=== PATIENT | male | born 1940 | race Caucasian/White ===

== ENCOUNTER → 2016-07-17 | Outpatient (CLI) | payer BC ==
[~2016-07-17] MED LIST: ASPEC81 PO; ATOR-26 PO; FLUT0.15; HYDR1AER23 PR; LEVO88TA3 PO; LISI-461 PO; METO50TA7 PO; MULT-506 PO; SITA50TA5 PO
[2016-07-17 12:45] LABS: ESTIMATED AVERAGE GLUCOSE 143 mg/dl; HA1C FLAG Normal (Normal)
[2016-07-17 12:55] LABS: ALT/SGPT 28 U/L (12-78); BLOOD UREA NITROGEN 16 mg/dl (7-18); BUN/CREATININE RATIO 14.3 (10-20); CARBON DIOXIDE 26 mmol/L (21-32); CHLORIDE 105 mmol/L (98-107); CHOLESTEROL 142 mg/dl (0-200); GLUCOSE 114 mg/dl (70-99); POTASSIUM 4.5 mmol/L (3.5-5.1); SODIUM 138 mmol/L (136-145); TRIGLYCERIDES 152 mg/dl (0-150); VERY LOW DENSITY LIPOPROT CALC 30 mg/dl
[2016-07-17 12:59] LABS: CALCIUM 9.2 mg/dl (8.5-10.1)
[2016-07-17 13:07] LABS: ALB/GLOB RATIO 0.9 (0.9-2); ALKALINE PHOSPHATASE 82 U/L (45-117); AST/SGOT 18 U/L (15-37); CHOLESTEROL/HDL RATIO 4.4; HDL CHOLESTEROL 32 mg/dl; LDL CHOLESTEROL CALCULATED 80 mg/dl
== END | disposition home or self-care (01) ==
LOC: C.LABPBG 10:53
PROVIDERS: ATTEND Internal Medicine Geriatric Medicine
DX: I25.10 Atherosclerotic heart disease of native coronary artery without angina pectoris (principal); E11.9 Type 2 diabetes mellitus without complications; E78.5 Hyperlipidemia, unspecified; E03.9 Hypothyroidism, unspecified; I10 Essential (primary) hypertension

== ENCOUNTER → 2017-01-08 | Outpatient (CLI) | payer BC ==
[2017-01-08 13:09] LABS: ALT/SGPT 29 U/L (12-78); AST/SGOT 20 U/L (15-37); BLOOD UREA NITROGEN 20 mg/dl (7-18); BUN/CREATININE RATIO 18.4 (10-20); CALCIUM 9.1 mg/dl (8.5-10.1); CARBON DIOXIDE 24 mmol/L (21-32); CHLORIDE 102 mmol/L (98-107); CREATININE 1.11 mg/dl (0.60-1.40); GLUCOSE 161 mg/dl (70-99); POTASSIUM 4.4 mmol/L (3.5-5.1); SODIUM 135 mmol/L (136-145)
[2017-01-08 13:20] LABS: ALB/GLOB RATIO 0.9 (0.9-2); ALKALINE PHOSPHATASE 110 U/L (45-117)
[2017-01-08 13:21] LABS: ESTIMATED AVERAGE GLUCOSE 154 mg/dl; HA1C FLAG Normal (Normal)
== END | disposition home or self-care (01) ==
LOC: C.LABPBG 08:11
PROVIDERS: ATTEND Internal Medicine Geriatric Medicine
DX: E11.9 Type 2 diabetes mellitus without complications (principal); E03.9 Hypothyroidism, unspecified; I10 Essential (primary) hypertension

== ENCOUNTER → 2017-02-09 | Outpatient (CLI) | payer BC | END | disposition home or self-care (01) | LOC: C.LABPBG 10:36 | PROVIDERS: ATTEND Internal Medicine Geriatric Medicine | DX: Z00.00 Encounter for general adult medical examination without abnormal findings (principal); E03.9 Hypothyroidism, unspecified ==

== ENCOUNTER 2019-03-01 16:06 | Inpatient (IN) ==
[2019-03-01] MEDS ORDERED: SODIUM CHLORIDE 0.9% 1000ML 1,000 ML IV ONE (17:44)
[2019-03-01 18:33] LABS: Basophils # (auto) 0.02 K/uL (0-0.2); Basophils % (auto) 0.2 %; Eosinophils # (auto) 0.33 K/uL (0-0.5); Eosinophils % (auto) 3.5 %; Hemoglobin 11.5 g/dL (14.0-18.0); Immature Granulocytes # (auto) 0.04 K/uL (0.00-0.02); Immature Granulocytes % (auto) 0.4 %; Lymphocytes # (auto) 1.13 K/uL (1.2-3.4); Mean Corpuscular Hgb Conc 32.9 g/dL (32-36); Mean Corpuscular Volume 88.2 fL (80-100); Mean Platelet Volume 9.3 fL (7.4-10.4); Monocytes # (auto) 0.86 K/uL (0.11-0.59); Monocytes % (auto) 9.1 %; Neutrophils # (auto) 7.02 K/uL (1.4-6.5); Neutrophils % (auto) 74.8 %; Platelet Count 273 K/uL (130-400); RDW Coefficient of Variation 14.1 % (11.5-14.5); RDW Standard Deviation 46.1 fL (36.4-46.3); Red Blood Count 3.97 M/uL (4.7-6.1)
[2019-03-01 18:40] LABS: Appearance Urine Clear (Clear); Bacteria Urine Automated Negative (Negative); Bilirubin Urine Negative (Negative); Blood Urine Negative (Negative); Color Urine Yellow; Glucose Urine UA Negative (Negative); Ketones Urine Negative (Negative); Leukocyte Esterase Urine Negative (Negative); Nitrite Urine Negative (Negative); Protein Urine Trace (Negative); RBC Urine Automated 0-4 /hpf (0-4); Specific Gravity Urine 1.014 (1.000-1.030); Urobilinogen Urine Negative (Negative); pH Urine 6.5 (4.5-7.5)
[2019-03-01 18:51] LABS: Albumin Level 2.9 gm/dl (3.4-5.0); BUN Creatinine Ratio 12.5 (10-20); Calcium 12.4 mg/dl (8.5-10.1); Creatinine Clr Calc Pharmacy 21.9 ml/min; Est GFR (African American) 20.9; Est GFR (Non-African American) 18.1
[2019-03-01 19:05] LABS: Albumin Globulin Ratio 0.6 (0.9-2); Bilirubin,Total 0.5 mg/dl (0.2-1); Globulin 4.8 gm/dl (2.5-4.0); Total Protein 7.7 gm/dl (6.4-8.2)
--- NOTE | 2019-03-01 20:26 | Emergency Department Note ---
Entered by Akua Murphy acting as a scribe for History of Present Illness General Chief complaint: Abnormal Labs/Diagnostic Testing Stated complaint: RENAL FAILURE Source: patient History of Present Illness Provider complaint: abdonormal labs Onset (ago): month(s) 2 Location: lower extremity and left Pain Consistency: + intermittent Associated symptoms: + loss of appetite and + other (Positive intermittent groin pain; Positive leg swelling; Positive leg erythema; Positive ankle swelling; Negative diarrhea;); no chest pain, no nausea/vomiting and no shortness of breath Treatments prior to arrival: none The patient, who is a 78 year old male with a medical history of hypertension, hypothyroidism, and chronic osteoarthritis, presents to the Emergency Room with complaints of unusual lab readings that were discovered prior to arrival. The patient's informs that the patient's creatinine levels were at 1 in December but it recently elevated to 3. The patient states that yesterday he had an ultrasound done which came back negative for blood clots. The patient's recalls that the patient has been experiencing leg pain and swelling for the past two months. The patient reports that on the patient had pain in his groin and swelling in his ankles. The patient's states that on February 16 the patient had pain is groin for 3 hours however this has resolved. The patient's expresses that the patient has not been eating and drinking at a normal rate. The patient states that he has been eating but lacks an appetite. The patient's informs that six days ago the patient's left foot was red and swollen. The patient denies nausea, vomiting, chest pain, or shortness of breath. The patient denies any other medical problems or the use of Lasix. Home Medications Home Medications Medication Instructions Recorded Confirmed Type atorvastatin 80 mg tablet 80 mg PO HS #90 tab 10/08/18 03/01/19 Rx acetaminophen 500 mg tablet 1,000 mg PO TID PRN #90 tab 11/29/18 03/01/19 History amoxicillin 500 mg capsule See Rx Instructions .ROUTE 11/29/18 03/01/19 History .COMPLEX cap blood sugar diagnostic #10 ea 11/29/18 02/28/19 History fluticasone propionate 50 1 sprays INTRANASAL DAILY PRN #3 gm 11/29/18 03/01/19 History mcg/actuation nasal spray,suspension lancets #50 ea 11/29/18 02/28/19 History metoprolol succinate 50 mg 50 mg PO QAM #90 tab 11/29/18 03/01/19 History tablet,extended release 24 hr sitagliptin 50 mg-metformin 1,000 1 tab PO BID #180 tab 02/04/19 03/01/19 Rx mg tablet aspirin 81 mg PO QPM 03/01/19 03/01/19 History levothyroxine 100 mcg PO QAM 03/01/19 03/01/19 History lisinopril 10 mg PO QPM 03/01/19 03/01/19 History Allergies Allergy/AdvReac Type Severity Reaction Status Date / Time No Known Allergies Allergy Verified 03/01/19 18:21 Past Med/Surg History Medical History Arteriosclerotic coronary artery disease Bleeding external hemorrhoids (Inactive) Chronic osteoarthritis Dyslipidemia Gastroesophageal reflux disease Hypertension Hypothyroidism Severe sleep apnea T2DM (type 2 diabetes mellitus) Surgical History History of total knee arthroplasty R knee. S/P coronary artery stent placement (02/2009) WALKER ti RCA Family History Father , age 70 Stroke Myocardial infarction Coronary heart disease Social History Preferred Language: Slovak Communication Ability: Effective Visual Impairment: No Limitations Hearing Ability: Use of Hearing Aid Oracle Engineer Required: No Beliefs That Will Affect Care: None marital status: Current Living Situation: Spouse current occupational status: retired Feels Safe at Home: Yes Safety Concerns: Feels Safe At This Time Smoking Status: Never smoker Second Hand Exposure: No ; Hx Alcohol Use: No Hx Substance Use: No caffeine: Yes Dental Care, Regularly: Yes Physical Activity Frequency: 3-4 Times per Week Seatbelt Use: always Sunscreen Use: Yes Review of Systems See HPI for pertinent positives & negatives. and A total of 10 systems reviewed and were otherwise negative Physical Exam Vital Signs Vital Signs - 24 hr 03/01/19 16:54 03/01/19 18:23 03/01/19 19:00 Temperature 36.6 C Temperature Source Oral Pulse Rate 88 80 80 Pulse Rate [Apical] 82 Pulse Rate from SpO2 Sensor 80 Pulse Rhythm Regular Pulse Rhythm [Apical] Regular Pulse Strength [Apical] Normal Respiratory Rate 20 20 19 Respiratory Effort / Characteristics Non-Labored Spontaneous Non-Labored Spontaneous Respiratory Depth Normal Normal Respiratory Pattern Regular Regular Blood Pressure 156/70 H Blood Pressure [Right Arm] 142/76 H Blood Pressure Mean 98 Blood Pressure Mean [Right Arm] 98 Blood Pressure Position Sitting Blood Pressure Position [Right Arm] Lying Pulse Oximetry 98 98 97 Oxygen Delivery Method Room Air Room Air Sepsis Recent Fever Within 48 Hours No Sepsis New/Unexplained Change in Mental Status No Sepsis Action Taken by Nursing No Action Required 03/01/19 19:06 03/01/19 19:30 03/01/19 19:44 Temperature Temperature Source Pulse Rate 76 76 Pulse Rate [Apical] 80 Pulse Rate from SpO2 Sensor 76 76 Pulse Rhythm Pulse Rhythm [Apical] Regular Pulse Strength [Apical] Normal Respiratory Rate 20 22 21 Respiratory Effort / Characteristics Non-Labored Spontaneous Respiratory Depth Normal Respiratory Pattern Regular Blood Pressure 150/88 H Blood Pressure [Right Arm] 142/76 H Blood Pressure Mean 123 Blood Pressure Mean [Right Arm] 98 Blood Pressure Position Blood Pressure Position [Right Arm] Lying Pulse Oximetry 98 98 97 Oxygen Delivery Method Room Air Sepsis Recent Fever Within 48 Hours Sepsis New/Unexplained Change in Mental Status Sepsis Action Taken by Nursing 03/01/19 20:01 03/01/19 20:30 Temperature Temperature Source Pulse Rate 77 76 Pulse Rate [Apical] Pulse Rate from SpO2 Sensor 77 76 Pulse Rhythm Pulse Rhythm [Apical] Pulse Strength [Apical] Respiratory Rate 22 24 Respiratory Effort / Characteristics Respiratory Depth Respiratory Pattern Blood Pressure 146/91 H 146/71 H Blood Pressure [Right Arm] Blood Pressure Mean 119 114 Blood Pressure Mean [Right Arm] Blood Pressure Position Blood Pressure Position [Right Arm] Pulse Oximetry 97 99 Oxygen Delivery Method Sepsis Recent Fever Within 48 Hours Sepsis New/Unexplained Change in Mental Status Sepsis Action Taken by Nursing GENERAL: Sitting up in bed, alert, well appearing, well nourished, no distress, non-toxic EYE EXAM: normal conjunctiva. OROPHARYNX: no exudate, no erythema, lips, buccal mucosa, and tongue normal and mucous membranes are moist NECK: supple, no nuchal rigidity, no adenopathy, non-tender LUNGS: Clear to auscultation. Normal chest wall mechanics HEART: no murmurs, S1 normal and S2 normal ABDOMEN: abdomen soft, non-tender, normo-active bowel sounds, no masses, no rebound or guarding. BACK: Back is symmetrical on inspection and there is no deformity, no midline tenderness, no CVA tenderness. SKIN: no rashes and no bruising UPPER EXTREMITIES: upper extremities are grossly normal. LOWER EXTREMITIES: Mild pitting edema bilateral lower extremities NEURO EXAM: Normal sensorium, cranial nerves II-XII grossly intact, normal speech, no gross weakness of arms, no gross weakness of legs. Course Course ED COURSE: Vital signs were reviewed and showed hypertensive. The patients medical record was reviewed The above diagnostic studies were performed and reviewed. ED treatments and interventions as stated above. 1725: The patient was evaluated in room C8. A complete history and physical examination was performed. 1931: I reviewed the patient's case with Dr. Douglas. She will evaluate the patient for further management. 1942: Upon reevaluation, the patient is resting.I discussed my findings with the patient and he understands and agrees with the treatment plan. Based on the patients age, coexisting illnesses, exam and lab findings the decision to treat as an inpatient was made. The patient remained stable while under my care. The patient will be evaluated for further management. Consultations Consultation #1: I reviewed the patient's case with Dr. Douglas. She will evaluate the patient for further management. Time: 19:32 Administered Medications Aspirin (Ecotrin Ectab) 81 mg PO QPM DARYL Stop: 03/31/19 21:43 Last Admin: 03/01/19 22:10 Dose: 81 mg Documented by: [id number] Atorvastatin Calcium (Lipitor) 80 mg PO HS DARYL Stop: 03/31/19 21:43 Last Admin: 03/01/19 22:10 Dose: 80 mg Documented by: [id number] Heparin Sodium (Porcine) (Heparin Sodium (Porcine)) 5,000 units SQ Q12 DARYL Stop: 03/31/19 21:43 Last Admin: 03/02/19 09:00 Dose: 5,000 units Documented by: [id number] Cosigned by: [id number] Admin: 03/01/19 22:10 Dose: 5,000 units Documented by: [id number] Cosigned by: [id number] Sodium Chloride (Nss 1000ml) 1,000 mls @ 100 mls/hr IV .Q10H DARYL Stop: 03/31/19 21:43 Last Admin: 03/02/19 08:59 Dose: 100 mls/hr Documented by: [id number] Infusion: 03/02/19 08:54 Dose: 0 mls/hr Documented by: [id number] Infusion: 03/01/19 22:55 Dose: 100 mls/hr Documented by: [id number] Infusion: 03/01/19 22:11 Dose: 0 mls/hr Documented by: [id number] Admin: 03/01/19 22:10 Dose: 100 mls/hr Documented by: [id number] Piperacillin Sod/Tazobactam (Sod 3.375 gm/ Dextrose) 115 mls @ 28.75 mls/hr IV Q8H DARYL; Protocol Stop: 03/12/19 03:59 Last Infusion: 03/02/19 08:04 Dose: 0 mls/hr Documented by: [id number] Admin: 03/02/19 04:04 Dose: 28.8 mls/hr Documented by: [id number] Insulin Aspart (Novolog Flexpen) 0 units SC ACHS [facility] Stop: 03/31/19 21:59 Last Admin: 03/02/19 09:03 Dose: 2 units Documented by: [id number] Cosigned by: [id number] Admin: 03/01/19 21:50 Dose: Not Given Documented by: [id number] Cosigned by: [id number] Levothyroxine Sodium (Synthroid) 100 mcg PO DAILYBB [facility] Stop: 04/01/19 06:29 Last Admin: 03/02/19 06:24 Dose: 100 mcg Documented by: [id number] Lisinopril (Zestril) 10 mg PO QPM [facility] Stop: 03/31/19 21:43 Last Admin: 03/01/19 22:11 Dose: 10 mg Documented by: [id number] Metoprolol Succinate (Toprol Xl) 50 mg PO QAM DARYL Stop: 04/01/19 08:59 Last Admin: 03/02/19 09:00 Dose: 50 mg Documented by: [id number] Discontinued Medications Sodium Chloride (Nss 1000ml) 1,000 mls @ 999 mls/hr IV .Q1H1M ONE Stop: 03/01/19 18:44 Last Infusion: 03/01/19 19:43 Dose: 0 mls/hr Documented by: [id number] Admin: 03/01/19 18:41 Dose: 999 mls/hr Documented by: [id number] Piperacillin Sod/Tazobactam (Sod 3.375 gm/ Dextrose) 115 mls @ 230 mls/hr IV ONE ONE; Protocol Stop: 03/01/19 22:13 Last Infusion: 03/01/19 22:50 Dose: 0 mls/hr Documented by: [id number] Admin: 03/01/19 22:10 Dose: 230 mls/hr Documented by: [id number] Medical Decision Making Differential Diagnosis Differential diagnosis includes etiologies such as, dysfunction uterine bl eeding, bleeding dyscrasia, trauma, infection, as well as others were entertained. Medical Records Attestation: I reviewed the patient's medical records. Home Medications Current Medication List: was personally reviewed by me Laboratory Data Attestation: I reviewed the patient's lab results. Result diagrams: 03/02/19 05:17 03/02/19 05:17 Lab Results 03/01/19 03/01/19 03/01/19 Range/Units 18:20 18:20 18:20 WBC 9.40 (4.8-10.8) K/uL RBC 3.97 L (4.7-6.1) M/uL Hgb 11.5 L (14.0-18.0) g/dL Hct 35.0 L (42-52) % MCV 88.2 (80-100) fL MCH 29.0 (25-34) pg MCHC 32.9 (32-36) g/dL RDW Std Deviation 46.1 (36.4-46.3) fL RDW Coeff of Enrike 14.1 (11.5-14.5) % Plt Count 273 (130-400) K/uL MPV 9.3 (7.4-10.4) fL Immature Gran % (Auto) 0.4 % Neut % (Auto) 74.8 % Lymph % (Auto) 12.0 % [place] % (Auto) 9.1 % Eos % (Auto) 3.5 % Baso % (Auto) 0.2 % Immature Gran # (Auto) 0.04 H (0.00-0.02) K/uL Neut # (Auto) 7.02 H (1.4-6.5) K/uL Lymph # (Auto) 1.13 L (1.2-3.4) K/uL [place] # (Auto) 0.86 H (0.11-0.59) K/uL Eos # (Auto) 0.33 (0-0.5) K/uL Baso # (Auto) 0.02 (0-0.2) K/uL Sodium 136 (136-145) mmol/L Potassium 4.0 (3.5-5.1) mmol/L Chloride 100 (98-107) mmol/L Carbon Dioxide 29 (21-32) mmol/L Anion Gap 6.0 (3-11) BUN 39 H (7-18) mg/dl Creatinine 3.15 H (0.6-1.4) mg/dl Est Cr Clr Drug Dosing 21.9 ml/min Est GFR ( Amer) 20.9 Est GFR (Non-Af Amer) 18.1 BUN/Creatinine Ratio 12.5 (10-20) Glucose 104 H (70-99) mg/dl Calcium 12.4 H* (8.5-10.1) mg/dl Total Bilirubin 0.5 (0.2-1) mg/dl AST 30 (15-37) U/L ALT 37 (12-78) U/L Alkaline Phosphatase 133 H (45-117) U/L Total Protein 7.7 (6.4-8.2) gm/dl Albumin 2.9 L (3.4-5.0) gm/dl Globulin 4.8 H (2.5-4.0) gm/dl Albumin/Globulin Ratio 0.6 L (0.9-2) Lipase 238 (73-393) U/L Urine Color Yellow Urine Appearance Clear (Clear) Urine pH 6.5 (4.5-7.5) Ur Specific [place] 1.014 (1.000-1.030) Urine Protein Trace H (Negative) Urine Glucose (UA) Negative (Negative) Urine Ketones Negative (Negative) Urine Blood Negative (Negative) Urine Nitrite Negative (Negative) Urine Bilirubin Negative (Negative) Urine Urobilinogen Negative (Negative) Ur Leukocyte Esterase Negative (Negative) Urine WBC (Auto) 1-5 (0-5) /hpf Urine RBC (Auto) 0-4 (0-4) /hpf U Hyaline Cast (Auto) 1-5 (0-5) /lpf U Epithel Cells (Auto) 5-10 H (0-5) /lpf Urine Bacteria (Auto) Negative (Negative) Blood Pressure Blood Pressure Findings: Elevated blood pressure Blood Pressure Disposition: elevated BP felt to be situational MDM Narrative Patient is a 78-year-old male with a past medical history of diabetes, GERD, hyperlipidemia and CAD that presents the ER referred in by PCP for acute kidney injury. IV was established blood work was obtained and previous labs are reviewed. Patient's baseline creatinine was about 1.3. Today is 3.15. There is no significant leukocytosis but a mild anemia 11.5. Calcium was significantly elevated at 12.4. He denies any history of cancer. Lipase was unremarkable. UA was unremarkable. Patient was given IV fluids. He was updated bedside. Discussed with the hospitalist and patient will be admitted for acute kidney injury with hypercalcemia. Impression & Plan SHAVONNE (acute kidney injury), Hypercalcemia Discharge Plan Visit Data *Final* Discharge Date/Time: 03/01/19 21:06 Chief Complaint: Abnormal Labs/Diagnostic Testing Stated Complaint: RENAL FAILURE ED Provider: Santosh Pritchett Discharge Problem: SHAVONNE (acute kidney injury), Hypercalcemia Patient Disposition: Admitted As Inpatient Discharge Instructions Interventions: ED Discharge Assessment Last Done: 03/01/19 21:06 The scribe's documentation has been prepared under my direction and personally reviewed by me in its entirety. I confirm that the note above accurately reflects all work, treatment, procedures, and medical decision making performed by me.
[2019-03-01] MEDS ORDERED: GLUCOSE 40% GEL 15 GM TUBE PO PRN (21:44)
[2019-03-01] MEDS ORDERED: GLUCAGON FOR INJ 1 MG VIAL SQ PRN (21:44)
[2019-03-01] MEDS ORDERED: ACETAMINOPHEN 325 MG TAB PO PRN (21:44)
[2019-03-01] MEDS ORDERED: ALUMINUM/MAGNESIUM SUSP 30 ML UDC PO PRN (21:44)
[2019-03-01] MEDS ORDERED: POLYETHYLENE (MIRALAX) 17 GM PACK PO PRN (21:44)
[2019-03-01] MEDS ORDERED: FLUTICASONE PROPIONATE NA SPR 16 GM BTL PRN (21:44)
[2019-03-01] MEDS ORDERED: MAGNESIUM HYDROXIDE SUSP 30 ML UDC PO PRN (21:44)
[2019-03-01] MEDS ORDERED: DEXTROSE 50% 50 ML SYRINGE IV PRN (21:44)
[2019-03-01] MEDS ORDERED: GLUCOSE 10 TABS/TUBE PO PRN (21:44)
[2019-03-01] MEDS ORDERED: PIPERACILLIN/TAZOBACTAM 3.375 GM in DEXTROSE 5% 100 ML IV ONE (21:44)
[2019-03-01] MEDS ORDERED: PIPERACILL/TAZOBAC CONSULT ACTIVE PRN (21:44)
[2019-03-01] MEDS ORDERED: CARBOHYDRATES FOR HYPOGLYCEMIA PO PRN (21:44)
[2019-03-01] MEDS: INSULIN ASPART 100 UNITS/ML 3 ML PEN SC SCH (21:50)
[2019-03-01] MEDS ORDERED: PHARMACY GLYCEMIC MGMT CONSULT PRN (21:53)
[2019-03-01] MEDS: SODIUM CHLORIDE 0.9% 1000ML 1,000 ML IV SCH (22:10)
[2019-03-01] MEDS: ATORVASTATIN 40 MG TAB PO SCH (22:10)
[2019-03-01] MEDS: ASPIRIN 81 MG ECTAB PO SCH (22:10)
[2019-03-01] MEDS: HEPARIN SOD 5,000 UNIT/0.5 ML VIAL SQ SCH (22:10)
[2019-03-01] MEDS: lisinopriL 10 MG TAB PO SCH (22:11)
--- NOTE | 2019-03-01 22:51 | History & Physical Report ---
Date of Service March 01, 2019 Assessment & Plan (1) SHAVONNE (acute kidney injury): Admit to [facility] on telemetry Creatinine significantly increased above the patient baseline 3.15/18.1. In December 2018 patient's kidney function was normal 1.24/55.7. Vital signs every 4 hours Monitor creatinine and GFR Consulted nephrology Avoid nephrotoxic agents Control blood pressure and keep systolic below 140 and diastolic below 85 DVT prophylaxis Heparin 5000 units every 12 hours Full code Present on Admission?: Yes (2) Hypercalcemia: Started IV fluid hydration with normal saline 100 cc/h While patient calcium is 12.4 calculated corrected calcium is 13.28. Patient continues to be asymptomatic. Would consider calcitonin if calcium continues to be elevated and patient symptomatic. Trend down calcium and follow-up labs daily. Started hypercalcemia work-up. Repeat calcium level with Albumin and or ionized calcium. Ordered PTH, TSH, CMP, phosphorus. CT scan of chest abdomen and pelvis to rule out cancer/metastatic disease(since hypercalcemia goes often with squamous cell carcinoma of the lung head and neck, breast, multiple myeloma, lymphomas, renal cell) No history of recent immobilization. Present on Admission?: Yes (3) Patent foramen ovale: This is a chronic issue. Patient follows up with Dr. James. Present on Admission?: Yes (4) Mitral regurgitation: This is a chronic issue patient follows up with Dr. James. Present on Admission?: Yes (5) T2DM (type 2 diabetes mellitus): Hold hypoglycemic agents while patient is in the hospital specifically sitagliptin/metformin since patient also has acute kidney injury . Accu-Cheks before meals and at bedtime. Glycemic control per pharmacy. Use sliding scale insulin rather. Present on Admission?: Yes (6) Severe sleep apnea: Placed order for CPAP PRN Present on Admission?: Yes (7) Hypothyroidism: Continue home dose of levothyroxine 100 MCG's p.o. every morning. TSH pending. Present on Admission?: Yes (8) Hypertension: Stable. Continue home medicine aspirin 81 mg p.o. every afternoon, lisinopril 10 mg p.o. q. p.m., metoprolol succinate 50 mg p.o. every morning. Continue monitoring blood pressure every 4 hours. Present on Admission?: Yes (9) Dyslipidemia: Lipid panel pending. Continue atorvastatin 80 mg p.o. nightly Present on Admission?: Yes (10) Arteriosclerotic coronary artery disease: As discussed above continue home medicine. Present on Admission?: Yes History of Present Illness Chief Complaint: Left lower extremity swelling, acute kidney injury Primary Care Provider: Judith Rodriguez DO Patient is a 78 years old male with past medical history of coronary artery disease, dyslipidemia, GERD, hypothyroidism, diabetes mellitus type 2, hypertension, severe sleep apnea, who was sent by his PCP for acute kidney injury to the emergency room to be evaluated. Patient states that he noticed swelling of his left lower extremity for several days and he was given Keflex by his PCP. Patient reports that swelling of the left lower extremity improved and that he also had study done to rule out DVT and study was negative for DVT. This occurred on February 28, 2019. Patient denies fever, chills, chest pain, shortness of breath, abdominal pain, frequency, urgency. Labs are reviewed: CBC 9.4, hemoglobin 11.5, hematocrit 35, platelets 273, sodium 136, potassium 4, chloride 100, BUN 39, creatinine 3.15. Patient's baseline creatinine is 1.24. GFR is 18.1 and baseline GFR is 55.7. Calcium 12.4 and corrected calcium is 13.28. Venous Doppler of the lower extremities: No evidence of deep venous thrombosis. Prominent through benign-appearing left inguinal lymph nodes may be reactive. Decision was made to admit patient for left lower extremity cellulitis, hypercalcemia and acute kidney injury to [facility] on telemetry. Allergies Allergy/AdvReac Type Severity Reaction Status Date / Time No Known Allergies Allergy Verified 03/01/19 18:21 Home Medications Home Medications Medication Instructions Recorded Confirmed Type atorvastatin 80 mg tablet 80 mg PO HS #90 tab 10/08/18 03/01/19 Rx acetaminophen 500 mg tablet 1,000 mg PO TID PRN #90 tab 11/29/18 03/01/19 History amoxicillin 500 mg capsule See Rx Instructions .ROUTE 11/29/18 03/01/19 History .COMPLEX cap blood sugar diagnostic #10 ea 11/29/18 02/28/19 History fluticasone propionate 50 1 sprays INTRANASAL DAILY PRN #3 gm 11/29/18 03/01/19 History mcg/actuation nasal spray,suspension lancets #50 ea 11/29/18 02/28/19 History metoprolol succinate 50 mg 50 mg PO QAM #90 tab 11/29/18 03/01/19 History tablet,extended release 24 hr sitagliptin 50 mg-metformin 1,000 1 tab PO BID #180 tab 02/04/19 03/01/19 Rx mg tablet aspirin 81 mg PO QPM 03/01/19 03/01/19 History levothyroxine 100 mcg PO QAM 03/01/19 03/01/19 History lisinopril 10 mg PO QPM 03/01/19 03/01/19 History Past Med/Surg History Medical History Arteriosclerotic coronary artery disease Bleeding external hemorrhoids (Inactive) Chronic osteoarthritis Dyslipidemia Gastroesophageal reflux disease Hypertension Hypothyroidism Severe sleep apnea T2DM (type 2 diabetes mellitus) Surgical History History of total knee arthroplasty R knee. S/P coronary artery stent placement (02/2009) WALKER ti RCA Family History Father , age 70 Stroke Myocardial infarction Coronary heart disease Social History Preferred Language: Upper Sorbian Communication Ability: Effective Visual Impairment: No Limitations Hearing Ability: Use of Hearing Aid Family Medicine Resident Required: No Beliefs That Will Affect Care: None marital status: Current Living Situation: Spouse current occupational status: retired Feels Safe at Home: Yes Safety Concerns: Feels Safe At This Time Smoking Status: Never smoker Second Hand Exposure: No ; Hx Alcohol Use: No Hx Substance Use: No caffeine: Yes Dental Care, Regularly: Yes Physical Activity Frequency: 3-4 Times per Week Seatbelt Use: always Sunscreen Use: Yes Review of Systems Review of Systems: All systems reviewed & are unremarkable except as noted in HPI & below Physical Exam Constitutional: WD/WN, vitals as above well developed Eyes: PERRL, conjunctivae normal, anicteric sclerae ENMT: external ear and nose normal, oropharynx normal Neck: trachea midline, no thyromegaly Respiratory: normal respiratory effort, lungs clear to auscultation Cardiovascular: Heart Sounds: normal S1, normal S2 and + murmur Vessels: dorsalis pedis pulses present Gastrointestinal (Abdomen): normal bowel sounds, soft, nontender, no hepatosplenomegaly Musculoskeletal: no cyanosis or clubbing, extremities motor strength 5/5 Skin: no rashes, warm and dry Neurologic: patellar DTR's 2+ bilat, sensation intact Psychiatric: A+Ox3, euthymic affect Lymphatic: no cervical or axillary lymphadenopathy Results & Data Vital Signs (Past 12 Hours) Vital Signs Temp Pulse Pulse Resp BP BP Pulse Ox 03/01/19 21:43 37.1 C 77 16 163/81 H 98 03/01/19 21:00 77 22 145/78 H 99 03/01/19 20:30 76 24 146/71 H 99 03/01/19 20:01 77 22 146/91 H 97 03/01/19 19:44 76 21 150/88 H 97 03/01/19 19:30 76 22 98 03/01/19 19:06 80 20 142/76 H 98 03/01/19 19:00 80 19 97 03/01/19 18:23 80 82 20 142/76 H 98 03/01/19 16:54 36.6 C 88 20 156/70 H 98 Code Status & VTE Plan Code Status Full code VTE Prophylaxis Plan VTE Prophylaxis will be ordered: Yes PG Care Time/CCT Total # of Minutes Spent Total Time Spent with Patient: Total time spent is greater than 50% in coordination of care (as documented) at patient's floor/unit and/or counseling patient:
[2019-03-02] MEDS: PIPERACILLIN/TAZOBACTAM 3.375 GM in DEXTROSE 5% 100 ML IV SCH ×2 (04:04→13:00)
[2019-03-02 05:45] LABS: Basophils # (auto) 0.03 K/uL (0-0.2); Basophils % (auto) 0.5 %; Eosinophils % (auto) 3.1 %; Hematocrit (blood only) 32.4 % (42-52); Hemoglobin 10.1 g/dL (14.0-18.0); Immature Granulocytes # (auto) 0.02 K/uL (0.00-0.02); Immature Granulocytes % (auto) 0.3 %; Lymphocytes # (auto) 0.83 K/uL (1.2-3.4); Lymphocytes % (auto) 12.8 %; Mean Corpuscular Hemoglobin 28.2 pg (25-34); Mean Corpuscular Hgb Conc 31.2 g/dL (32-36); Mean Corpuscular Volume 90.5 fL (80-100); Mean Platelet Volume 9.2 fL (7.4-10.4); Monocytes # (auto) 0.74 K/uL (0.11-0.59); Monocytes % (auto) 11.4 %; Neutrophils # (auto) 4.66 K/uL (1.4-6.5); Neutrophils % (auto) 71.9 %; Platelet Count 213 K/uL (130-400); RDW Coefficient of Variation 14.1 % (11.5-14.5); Red Blood Count 3.58 M/uL (4.7-6.1); White Blood Count 6.48 K/uL (4.8-10.8)
[2019-03-02 06:22] LABS: Albumin Level 2.3 gm/dl (3.4-5.0); BUN Creatinine Ratio 12.4 (10-20); Calcium 11.2 mg/dl (8.5-10.1); Est GFR (African American) 21.9; Est GFR (Non-African American) 18.9; Potassium 3.8 mmol/L (3.5-5.1)
[2019-03-02] MEDS: LEVOTHYROXINE SODIUM 100 MCG TABLET PO SCH (06:24)
[2019-03-02 06:36] LABS: Albumin Globulin Ratio 0.6 (0.9-2); Bilirubin,Total 0.5 mg/dl (0.2-1); Globulin 3.7 gm/dl (2.5-4.0); Phosphorus 3.3 mg/dl (2.5-4.9); Thyroid Stimulating Hormone 3.3 uIu/ml (0.300-4.500)
[2019-03-02 08:15] LABS: Estimated Average Glucose 154 mg/dl
--- NOTE | 2019-03-02 08:33 | Pharmacy Report ---
Glycemic Control Consultation - Date of Service March 02, 2019 - Scope Scope: Glycemic Pharmacist consulted by Dr Douglas on 03/02/2019 for glycemic control and to write orders per [facility] inpatient glycemic control protocol - Objective Weight: 96.9 kg Accuchecks BSG (last 24hrs): 03/01/19 03/02/19 03/02/19 18:20 05:17 07:45 Glucose 104 H 105 H POC Glucose 109 H Laboratory Data (last 24hrs): 03/01/19 03/02/19 18:20 05:17 Potassium 4.0 3.8 Carbon Dioxide 29 28 Anion Gap 6.0 4.0 Creatinine 3.15 H 3.03 H Est Cr Clr Drug Dosing 21.9 23.0 HbA1c: Hemoglobin A1c 7.0 % (4.5-5.6) H 03/02/19 05:17 - Recent Pertinent Medications Outpatient Anti-diabetic Regimen: * Janumet 1 tablet BID * A1c = 7.0 % 03/02/2019 The patient is currently receiving: * Basal insulin: Lantus -- units every -- hours * Correctional Insulin: Novolog Correction per scale ACHS Goal Range: Low 110 mg/dL - High 140 mg/dL Correction Factor: 30 mg/dL/unit * Prandial insulin: Per carb ratio of 1 unit per 10 grams CHO consumed * Oral Agents: Risk Factors for Insulin Resistance: * Diet: T2DM * Infection: on Zosyn for leg infection - Assessment & Plan Assessment & Plan: ASSESSMENT: * Mr Hankins is a 78 y/o M with a PMH of well controlled T2DM who presents with SHAVONNE and hypercalcemia. He is maintained on a combo oral agent at home. This will be held in light of SHAVONNE as well as hospitalization status. * Fasting blood sugar was 105 mg/dL. Hold off on Lantus for now. * Novolog weight-based stress of 2 for now. Monitor closely. PLAN FOR INPATIENT GLYCEMIC CONTROL: * Holding outpatient oral diabetes medications * Basal insulin * Lantus -- units SQ BID * Bolus insulin * NovoLog per scale ACHS or Q6hrs while NPO * Goal Range: Low 110 mg/dL - High 140 mg/dL * Correction Factor: 30 mg/dL/unit * Nutritional / Prandial insulin per carb ratio of 1 unit per 10 grams CHO consumed * Please note that the plan above was derived based on current level of insulin resistance and hospital stress. These recommendations are appropriate for inpatient admission only. Plan of care upon discharge will need to be reassessed to avoid potential outpatient hypo/hyperglycemia. Thank you.
[2019-03-02] MEDS: SODIUM CHLORIDE 0.9% 1000ML 1,000 ML IV SCH ×2 (08:59→18:33)
[2019-03-02] MEDS: METOPROLOL SUCC 50MG EXT REL TAB PO SCH (09:00)
[2019-03-02] MEDS: HEPARIN SOD 5,000 UNIT/0.5 ML VIAL SQ SCH ×2 (09:00→20:25)
[2019-03-02] MEDS: INSULIN ASPART 100 UNITS/ML 3 ML PEN SC SCH ×4 (09:03→20:25)
--- NOTE | 2019-03-02 10:31 | Nephrology Consultation ---
Date of Consultation March 02, 2019 Assessment & Plan (1) SHAVONNE (acute kidney injury): 68-year-old gentlemen admitted with acute kidney injury and hypercalcemia. Baseline had decent renal function. History of recent loss of weight and loss of appetite. No personal history of malignancy. Has not been on hydrochlorothiazide or high dose of calcium or vitamin-D supplement. No renal imaging available. Recent PSA was normal. Unclear etiology for acute kidney injury and Hypercalcemia, seems to be non PTH mediated. Clinically stable, blood pressure well controlled and has been having decent urine output. Volume status acceptable. --continue on IV normal saline, calcium seem to be improving with hydration only --considering acute kidney injury, hypercalcemia, recent a change in weight, will order CT chest abdomen and pelvis to evaluate for any underlying occult malignancy --get PTHrP, vitamin-D and paraproteinemia workup --okay to continue on lisinopril, avoid nephrotoxic medications including NSAIDs. --dose medications for GFR less than 30 --left arm nephrology precaution Will follow Thank you for allowing me to participate in your patient's care. It was a pleasure to see Mr. Hankins (2) Hypercalcemia: (3) Hypertension: (4) Dyslipidemia: (5) Arteriosclerotic coronary artery disease: (6) T2DM (type 2 diabetes mellitus): History of Present Illness Reason for Consultation: AK I, hypercalcemia. Attending Physician: Erin Avila DO History of Present Illness Mr. Hankins is a 78-year-old gentlemen with past medical history significant for hypertension, diabetes, coronary artery disease, sleep apnea admitted to the hospital with acute kidney injury and hypercalcemia. Nephrology consult was requested for further management. All Electronic medical records are reviewed in detail during patient's visit. Patient's Fely was at bedside during the visit. Flori was admitted to the hospital yesterday after he was found to have abnormal labs ordered by his PCP. He was found to have acute kidney injury and hypercalcemia. Baseline creatinine has been 1.1-1.2. On admission creatinine was 3.1 and has been stable. His found to have hypercalcemia CT calcium around 13.2. Started on IV fluid and calcium slightly improved to 11.4 this morning however creatinine staying about the same. He has not been on hydrochlorothiazide. Was taking only multivitamin but has not been on calcium or vitamin-D supplement. No personal history of malignancy. He did notice some weight loss over last few weeks and appetite has been poor. Denies nausea or vomiting. No history of autoimmune or paraprotein mediated disease. No history of hyperparathyroidism, PTH was appropriately suppressed. Recent PSA was normal. Urinalysis showed low grade proteinuria but no hematuria. No renal imaging available. He was recently found to have left lower extremity cellulitis over last 2 weeks and had a Doppler which was negative for DVT. He was started on oral Keflex on 02/28/2019 and he received only 2 doses prior to coming to hospital. Cellulitis seemed to have improved. He denies any voiding symptoms, shortness of breath, chest pain. Denies recent NSAID use. Has been on lisinopril. No family history of chronic kidney disease or end-stage renal disease. Never smoker. Currently retired. History hypertension and diabetes for more than 10 years, seems to be well controlled, no history of retinopathy or significant proteinuria. Has been on lisinopril 40 mg daily and metoprolol.. History of coronary artery disease status post stent more than 10 years ago, has been stable since. Has been having decent urine output. Allergies Allergy/AdvReac Type Severity Reaction Status Date / Time No Known Allergies Allergy Verified 03/01/19 18:21 Home Medications Home Medications Medication Instructions Recorded Confirmed Type atorvastatin 80 mg tablet 80 mg PO HS #90 tab 10/08/18 03/01/19 Rx acetaminophen 500 mg tablet 1,000 mg PO TID PRN #90 tab 11/29/18 03/01/19 History amoxicillin 500 mg capsule See Rx Instructions .ROUTE 11/29/18 03/01/19 History .COMPLEX cap blood sugar diagnostic #10 ea 11/29/18 02/28/19 History fluticasone propionate 50 1 sprays INTRANASAL DAILY PRN #3 gm 11/29/18 03/01/19 History mcg/actuation nasal spray,suspension lancets #50 ea 11/29/18 02/28/19 History metoprolol succinate 50 mg 50 mg PO QAM #90 tab 11/29/18 03/01/19 History tablet,extended release 24 hr sitagliptin 50 mg-metformin 1,000 1 tab PO BID #180 tab 02/04/19 03/01/19 Rx mg tablet aspirin 81 mg PO QPM 03/01/19 03/01/19 History levothyroxine 100 mcg PO QAM 03/01/19 03/01/19 History lisinopril 10 mg PO QPM 03/01/19 03/01/19 History Patient History Medical History Arteriosclerotic coronary artery disease Bleeding external hemorrhoids (Inactive) Chronic osteoarthritis Dyslipidemia Gastroesophageal reflux disease Hypertension Hypothyroidism Severe sleep apnea T2DM (type 2 diabetes mellitus) Surgical History History of total knee arthroplasty R knee. 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: No Beliefs That Will Affect Care: None marital status: Current Living Situation: Spouse current occupational status: retired Feels Safe at Home: Yes Safety Concerns: Feels Safe At This Time Smoking Status: Never smoker Second Hand Exposure: No ; Hx Alcohol Use: No Hx Substance Use: No caffeine: Yes Dental Care, Regularly: Yes Physical Activity Frequency: 3-4 Times per Week Seatbelt Use: always Sunscreen Use: Yes Review of Systems Review of Systems: All systems reviewed & are unremarkable except as noted in HPI & below Physical Exam Constitutional: WD/WN, vitals as above well developed and well nourished; no acute distress Eyes: PERRL, conjunctivae normal, anicteric sclerae ENMT: external ear and nose normal, oropharynx normal Ears: no hearing impairment Neck: trachea midline Respiratory: normal respiratory effort, lungs clear to auscultation no cough Auscultation: no crackles, no rales and no wheezes Cardiovascular: RRR, no murmur, no edema Gastrointestinal (Abdomen): normal bowel sounds, soft, nontender, no hepatosplenomegaly Percussion/Palpation: abdomen nontender, no guarding and abdomen not rigid Musculoskeletal: Extremities: extremities normal to inspection Gait: normal gait Skin: no rashes, warm and dry Neurologic: moves all extremities and awake Psychiatric: A+Ox3, euthymic affect Results & Data Vital Signs (Past 12 Hours) Vital Signs Temp Pulse Pulse Pulse Resp BP Pulse Ox 03/02/19 07:37 36.8 C 75 16 100/60 94 03/02/19 07:00 72 03/02/19 04:00 37.1 C 79 18 126/72 100 03/02/19 01:25 71 16 97 03/02/19 00:00 77 03/01/19 23:38 78 18 98 03/01/19 23:13 37.3 C 80 18 152/70 H 99 PG Care Time/CCT Total # of Minutes Spent Total Time Spent with Patient: Total time spent is greater than 50% in coordination of care (as documented) at patient's floor/unit and/or counseling patient:
--- NOTE | 2019-03-02 11:27 | CT Scan Report ---
CT abd pelvis wo con CLINICAL HISTORY: 78 years-old Male presenting with Weight loss, hypercalcemia, SHAVONNE,?occult malignanc y. TECHNIQUE: Multidetector CT of the abdomen and pelvis was performed without the use of intravenous co ntrast. IV contrast: None. One or more dose lowering techniques were used consistent with the princip les of ALA (as low as reasonably achievable), including automatic exposure control, mA or kV adjust ment to individual patient size, and/or use of iterative reconstruction. COMPARISON: None. CT DOSE (mGy.cm): The estimated cumulative dose is 1060.34 mGycm. FINDINGS: Deputy Sheriff Chief topogram: Unremarkable. Lung bases: Borderline enlargement of the heart. Coronary artery, aortic valve, and mitral annular ca lcification. Trace bilateral pleural effusions. Minimal dependent changes likely atelectasis. Liver: Normal morphology. Normal density. Cyst suspected along the anterior liver. Biliary: No gross biliary ductal dilatation allowing for noncontrast technique. Gallbladder decompres sed. Pancreas: Mild parenchymal atrophy. Spleen: Normal noncontrast appearance. Adrenal glands: Normal noncontrast appearance. Kidneys and ureters: Mild to moderate left pelvocaliectasis and distention of the left ureter. The le ft ureter traverses abnormal retroperitoneal soft tissue. The distalmost left ureter is nondistended. No right hydronephrosis or hydroureter. Moderate bilateral perinephric fat stranding slightly greate r on the left. No nephrolithiasis. Bladder: Circumferential bladder wall thickening. Pelvic organs: Prostate enlargement likely secondary to benign prostatic hyperplasia. Bowel: Mild diverticulosis of the mid sigmoid colon without wall thickening or pericolonic inflammato ry change. The appendix is normal. No bowel obstruction. Trace sliding type hiatal hernia. Peritoneal cavity: No free fluid or intraperitoneal gas. Trace retroperitoneal fluid bilaterally. Ext ends into the extraperitoneal pelvis and presacral region. Lymph nodes: Conglomerate retroperitoneal soft tissue extending superiorly to the right retrocrural r egion and most extensively in the pericaval, aortocaval, and left periaortic regions. There is also l eft common iliac conglomerate lymphadenopathy. Bilateral external iliac lymphadenopathy is evident. I nguinal lymph nodes are not significantly enlarged. An index node in the right external iliac region measures 15 mm in short axis. Vasculature: Atherosclerosis of the normal caliber abdominal aorta. Up lifting of the aorta from the vertebral bodies noted. Abdominal wall: Bilateral fat-containing inguinal hernias, left greater than right. Musculoskeletal: Degenerative changes of the spine. Mild heterogeneity of bone marrow. No focal destr uctive lesion is appreciated. IMPRESSION: 1. Extensive retroperitoneal lymphadenopathy extending from the right retrocrural region superiorly to the bilateral external iliac regions inferiorly. A notable lymph node in the right external iliac region would be amenable to percutaneous biopsy, potentially ultrasound-guided. Differential consider ations favor lymphoproliferative disease/lymphoma or less likely a urothelial or prostatic etiology g iven the presence of moderate left hydroureteronephrosis. 2. No convincing evidence of osseous metastatic disease on the current exam. Osseous involvement may be better assessed with PET CT or bone scan versus random bone marrow biopsy in the setting of lymph chandler. 3. 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 ACT 112: Positive. There are findings on this exam that require communication between the performing entity and the patient following Patient Test Result Information Act ([place] Act 112) guidelines. Electronically signed by: Oscar Pineda M.D. 03/02/2019 11:26 AM
--- NOTE | 2019-03-02 11:30 | CT Scan Report ---
CT OF THE CHEST WITHOUT IV CONTRAST CLINICAL HISTORY: Weight loss, hypercalcemia, SHAVONNE,?occult malignancy COMPARISON STUDY: Chest radiograph June 06, 2011. CT DOSE: 559.38 mGycm TECHNIQUE: Axial images of the chest were obtained without IV contrast. Images were reviewed in the axial, sagittal, and coronal planes. IV contrast was not administered for this examination. Automat ed exposure control was utilized for the study. A dose lowering technique was utilized adhering to t he principles of ALARA. FINDINGS: Multiple mildly enlarged bilateral axillary lymph nodes are noted. Index right axillary no de on image 41 of 256 measures 2.2 cm. An index right retropectoral lymph node on image 61 measures 1 .7 cm. There is ill-defined soft tissue along the right scalene muscles. There is also ill-defined ri ght anterior mediastinal soft tissue which extends through the chest wall. This measures 7 x 5.6 x 4. 8 cm. There is no associated bony destruction. There is mild infiltrative left upper anterior mediast inal soft tissue as well. Note is made of a retrocrural/para-aortic soft tissue/lymphadenopathy which is better depicted on the CT of the abdomen and pelvis. Mildly enlarged right hilar lymph nodes are present. There is no pneumothorax. Trace bilateral pleural effusions are noted. The heart is moderate ly enlarged. Extensive coronary artery calcification is noted. There are no suspicious pulmonary nodu les. Skeletal structures are heterogeneous with sclerosis of the T7 vertebral body. IMPRESSION: 1. Multifocal infiltrative soft tissue/lymphadenopathy, including right anterior upper mediastinal so ft tissue which extends through the chest wall. Retrocrural/para-aortic infiltrative soft tissue/lymp hadenopathy. Multiple mildly enlarged bilateral axillary, right retropectoral, mediastinal and right hilar lymph nodes. Overall, the findings strongly suggest lymphoma. 2. Trace bilateral pleural effusions. 3. Moderate cardiomegaly. Extensive coronary artery calcification. 4. Heterogeneity of the thoracic spine, most notably T7. This is nonspecific but may reflect lymphoma tous involvement. ACT 112: Positive. There are findings on this exam that require communication between the performing entity and the patient following Patient Test Result Information Act ([place] Act 112) guidelines. Electronically signed by: Hayes Moore M.D. 03/02/2019 11:29 AM
[2019-03-02] MEDS: cefTRIAXone SODIUM 2,000 MG in DEXTROSE 5% 50 ML IV SCH (15:29)
--- NOTE | 2019-03-02 17:08 | Hospitalist Progress Note ---
Date of Service March 02, 2019 Assessment & Plan (1) Cellulitis: L LE cellulitis Keflex x2 doses as outpt, however continued to worsen Improving on zosyn, will change to ceftriaxone WBC WNL, afebrile LE US neg for DVT (done 02/28 as outpt) (2) SHAVONNE (acute kidney injury): Admit to [facility] on telemetry Creatinine significantly increased above the patient baseline 3.15/18.1. In December 2018 patient's kidney function was normal 1.24/55.7. Vital signs every 4 hours Monitor creatinine and GFR Renal monitoring Avoid nephrotoxic agents Control blood pressure and keep systolic below 140 and diastolic below 85 (3) Hypercalcemia: While patient calcium is 12.4 calculated corrected calcium is 13.28. Patient continues to be asymptomatic. Would consider calcitonin if calcium continues to be elevated and patient symptomatic. Trend down calcium and follow-up labs daily. renal c/s, workup pending CTAP noted for lymphadenopathy concerning for lymphoma Hem/onc c/s pending (4) Patent foramen ovale: This is a chronic issue. Patient follows up with Dr. James. (5) Mitral regurgitation: This is a chronic issue patient follows up with Dr. James. (6) T2DM (type 2 diabetes mellitus): Hold hypoglycemic agents while patient is in the hospital specifically sitagliptin/metformin since patient also has acute kidney injury . Accu-Cheks before meals and at bedtime. Glycemic control per pharmacy. SSI PRN (7) Severe sleep apnea: Placed order for CPAP PRN (8) Hypothyroidism: Continue home dose of levothyroxine 100 MCG's p.o. every morning. TSH pending. (9) Hypertension: Stable. Continue home medicine aspirin 81 mg p.o. every afternoon, lisinopril 10 mg p.o. q. p.m., metoprolol succinate 50 mg p.o. every morning. Continue monitoring blood pressure every 4 hours. (10) Dyslipidemia: Lipids pending Continue atorvastatin 80 mg p.o. nightly (11) Arteriosclerotic coronary artery disease: As discussed above continue home medicine. (12) DVT prophylaxis: DVT prophylaxis Heparin 5000 units every 12 hours Full code Subjective Pt and feel that his L foot redness and swelling are much improved today. He has not had pain to the region during the entire episode. Tolerating PO without issue. Pt denies fever, SOB, chest pain, abd pain, n/v/c/d. Review of Systems Review of Systems: Pertinent positives and negatives reviewed in HPI--all others negative Physical Exam Constitutional: WD/WN, vitals as above Eyes: normal visual sanchez by confrontation and + anicteric sclerae Neck: normal visual inspection and trachea midline Respiratory: normal respiratory effort, lungs clear to auscultation Cardiovascular: Rate/Rhythm: regular rate and regular rhythm Gastrointestinal (Abdomen): Inspection/Auscultation: abdomen not distended Percussion/Palpation: abdomen soft; abdomen nontender Musculoskeletal: Head/Neck/Chest: normocephalic and head atraumatic negative for edema, peripheral pulses intact Skin: no rashes, warm and dry Very slight pink discoloration near the L toes Neurologic: awake; not confused Speech / Cognition: normal speech Psychiatric: A+Ox3, euthymic affect Results & Data Vital Signs (Past 12 Hours) Vital Signs Temp Pulse Pulse Resp BP Pulse Ox 03/02/19 16:11 72 03/02/19 15:06 37.0 C 73 18 136/69 100 03/02/19 07:37 36.8 C 75 16 100/60 94 03/02/19 07:00 72 PG Care Time/CCT Total # of Minutes Spent Total Time Spent with Patient: Total time spent is greater than 50% in coordination of care (as documented) at patient's floor/unit and/or counseling patient:
[2019-03-02 18:23] LABS: Protein Creatinine Ratio Urine 0.5 (0-0.2); Total Protein Urine Random 21.4 mg/dl (0-11.9)
[2019-03-02] MEDS: ATORVASTATIN 40 MG TAB PO SCH (20:25)
[2019-03-02] MEDS: ASPIRIN 81 MG ECTAB PO SCH (20:26)
[2019-03-02] MEDS: lisinopriL 10 MG TAB PO SCH (20:26)
[2019-03-03] MEDS: SODIUM CHLORIDE 0.9% 1000ML 1,000 ML IV SCH ×3 (04:13→19:36)
[2019-03-03] MEDS: LEVOTHYROXINE SODIUM 100 MCG TABLET PO SCH (05:35)
[2019-03-03] MEDS ORDERED: CIPROFLOXACIN / D5W 200 MG/100 ML BAG IV SCH (06:00)
[2019-03-03 06:19] LABS: Basophils # (auto) 0.02 K/uL (0-0.2); Basophils % (auto) 0.3 %; Eosinophils # (auto) 0.19 K/uL (0-0.5); Eosinophils % (auto) 2.8 %; Hematocrit (blood only) 30.7 % (42-52); Hemoglobin 10.1 g/dL (14.0-18.0); Immature Granulocytes # (auto) 0.02 K/uL (0.00-0.02); Immature Granulocytes % (auto) 0.3 %; Lymphocytes % (auto) 13.3 %; Mean Corpuscular Hemoglobin 28.9 pg (25-34); Mean Corpuscular Hgb Conc 32.9 g/dL (32-36); Mean Platelet Volume 9.5 fL (7.4-10.4); Monocytes # (auto) 0.85 K/uL (0.11-0.59); Monocytes % (auto) 12.6 %; Neutrophils # (auto) 4.77 K/uL (1.4-6.5); Neutrophils % (auto) 70.7 %; Platelet Count 209 K/uL (130-400); RDW Coefficient of Variation 14.3 % (11.5-14.5); RDW Standard Deviation 45.9 fL (36.4-46.3); Red Blood Count 3.49 M/uL (4.7-6.1); White Blood Count 6.75 K/uL (4.8-10.8)
[2019-03-03 06:51] LABS: Albumin Level 2.2 gm/dl (3.4-5.0); BUN Creatinine Ratio 11.3 (10-20); Calcium 10.5 mg/dl (8.5-10.1); Creatinine Clr Calc Pharmacy 23.2 ml/min; Est GFR (African American) 21.8; Est GFR (Non-African American) 18.8; Potassium 3.7 mmol/L (3.5-5.1)
[2019-03-03 06:53] LABS: Albumin Globulin Ratio 0.6 (0.9-2); Bilirubin,Total 0.4 mg/dl (0.2-1); Total Protein 6.2 gm/dl (6.4-8.2)
[2019-03-03] MEDS: INSULIN ASPART 100 UNITS/ML 3 ML PEN SC SCH ×4 (08:53→21:07)
[2019-03-03] MEDS: HEPARIN SOD 5,000 UNIT/0.5 ML VIAL SQ SCH ×2 (08:54→21:10)
--- NOTE | 2019-03-03 09:01 | Pharmacy Report ---
Glycemic Control Consultation - Date of Service March 03, 2019 - Scope Scope: Glycemic Pharmacist consulted by Dr Sena on 03/02/19 for glycemic control and to write orders per [facility] inpatient glycemic control protocol - Objective Weight: 99.2 kg Accuchecks BSG (last 24hrs): 03/01/19 03/02/19 03/02/19 21:50 11:13 16:52 Glucose POC Glucose 86 143 H 88 03/02/19 03/03/19 03/03/19 20:16 05:31 07:45 Glucose 91 POC Glucose 112 H 101 H Laboratory Data (last 24hrs): 03/03/19 05:31 Potassium 3.7 Carbon Dioxide 26 Anion Gap 6.0 Creatinine 3.05 H Est Cr Clr Drug Dosing 23.2 HbA1c: Hemoglobin A1c 7.0 % (4.5-5.6) H 03/02/19 05:17 - Recent Pertinent Medications Outpatient Anti-diabetic Regimen: * Janumet 50/1000mg PO BID * A1c = 7.0 % 03/02/19 Risk Factors for Insulin Resistance: * Infection: LLE Cellulitis - IV ceftriaxone * Diet: NPO this morning - Assessment & Plan Assessment & Plan: ASSESSMENT: * 78 year old admitted with SHAVONNE, hypercalcemia with unclear etiology, seems to be non PTH mediated, NPO today per urology, no hx of malignancy. Type 2 DM managed on Janumet at home. * Oral agents are not recommended for inpatient use d/t drug interactions, changing PO intake, and difficulty titrating for acute hyper/hypoglycemia. ADA recommends re-initiating outpatient oral agents 1-2 days prior to discharge if/when appropriate if they were held on admission. * Will hold oral agents for admission and utilize SQ basal bolus insulin regimen which is the recommended regimen for inpatient glycemic control. * Patient's blood sugars at goal over past 24 hours on only CF/CR, will continue and follow. PLAN FOR INPATIENT GLYCEMIC CONTROL: * Holding outpatient oral diabetes medications * Bolus insulin * NovoLog per scale ACHS or Q6hrs while NPO * Goal Range: Low 110 mg/dL - High 140 mg/dL * Correction Factor: 30 mg/dL/unit * Nutritional / Prandial insulin per carb ratio of 1 unit per 10 grams CHO consumed * Please note that the plan above was derived based on current level of insulin resistance and hospital stress. These recommendations are appropriate for inpatient admission only. Plan of care upon discharge will need to be reassessed to avoid potential outpatient hypo/hyperglycemia. Thank you.
[2019-03-03] MEDS: METOPROLOL SUCC 50MG EXT REL TAB PO SCH (09:07)
--- NOTE | 2019-03-03 09:37 | Urology Consultation ---
Date of Consultation March 03, 2019 Assessment & Plan (1) SHAVONNE (acute kidney injury): (2) Hydronephrosis, left: 78 yo M with SHAVONNE secondary to left hydronephrosis and new diagnosis of possible lymphoma. - Creatinine remains elevated despite IV hydration - Keep NPO Findings reviewed with Dr. Hussein. Given his SHAVONNE and hydronephrosis in the context of possible ureteral obstruction due to lymphadenopathy, will proceed with OR for cysto, bilateral retrograde pyelogram and bilateral stent placement. Risks and benefits to be reviewed with patient by surgeon. OR notified. Preoperative EKG ordered. Will cover with renally dosed Cipro IV preoperatively. Addendum: For cysto, bilateral retrograde pyelography and stent placement. History of Present Illness Attending Physician: Rivera Smith History of Present Illness 78 yo M with PMHx of CAD, dyslipidemia, GERD, hypothyroidism, diabetes mellitus type 2, hypertension, and sleep apnea admitted with left lower extremity cellulitis and SHAVONNE. New consultation. Pt was sent to [facility] ED on 03/01/19 by his PCP due to acute kidney injury. Pt was being treated outpatient for left lower extremity cellulitis. Lab work showed elevated creatine at 3.19, so he presented to the ED for evaluation. Baseline creatinine ~1.0. Chart review: Cr 03/03/19 - 3.05 CT abd/pelvis 03/02/19 Impression: extensive retroperitoneal lymphadenopathy extending from the right retrocrural region superiorly to the bilateral external iliac regions inferiorly. Differential considerations favor lymphoproliferative disease/lymphoma or less likely a urothelial or prostatic etiology given the presence of moderate left hydroureteronephrosis. No convincing evidence of osseous metastatic disease on the current exam. CT chest 03/02/19 Impression: multifocal infiltrative soft tissue/lymphadenopathy, including right anterior upper mediastinal soft tissue which extends through the chest wall. Retrocrural/para-aortic infiltrative soft tissue/lymphadenopathy. Multiple mildly enlarged bilateral axillary, right retropectoral, mediastinal and right hilar lymph nodes. Overall, the findings strongly suggest lymphoma. Patient is alert and sitting up in bedside chair this AM. at bedside. Overall feeling well, offers no complaints. No flank or abdominal pain. Voiding spontaneously. No dysuria or hematuria. Some urgency at baseline. No fever, c hills, nausea, or vomiting. No history of malignancy. Reports history of recent weight loss and appetite loss. Allergies Allergy/AdvReac Type Severity Reaction Status Date / Time No Known Allergies Allergy Verified 03/01/19 18:21 Home Medications Home Medications Medication Instructions Recorded Confirmed Type atorvastatin 80 mg tablet 80 mg PO HS #90 tab 10/08/18 03/01/19 Rx acetaminophen 500 mg tablet 1,000 mg PO TID PRN #90 tab 11/29/18 03/01/19 History amoxicillin 500 mg capsule See Rx Instructions .ROUTE 11/29/18 03/01/19 History .COMPLEX cap blood sugar diagnostic #10 ea 11/29/18 02/28/19 History fluticasone propionate 50 1 sprays INTRANASAL DAILY PRN #3 gm 11/29/18 03/01/19 History mcg/actuation nasal spray,suspension lancets #50 ea 11/29/18 02/28/19 History metoprolol succinate 50 mg 50 mg PO QAM #90 tab 11/29/18 03/01/19 History tablet,extended release 24 hr sitagliptin 50 mg-metformin 1,000 1 tab PO BID #180 tab 02/04/19 03/01/19 Rx mg tablet aspirin 81 mg PO QPM 03/01/19 03/01/19 History levothyroxine 100 mcg PO QAM 03/01/19 03/01/19 History lisinopril 10 mg PO QPM 03/01/19 03/01/19 History Patient History Medical History Arteriosclerotic coronary artery disease Bleeding external hemorrhoids (Inactive) Chronic osteoarthritis Dyslipidemia Gastroesophageal reflux disease Hypertension Hypothyroidism Severe sleep apnea T2DM (type 2 diabetes mellitus) Surgical History History of total knee arthroplasty R knee. S/P coronary artery stent placement (02/2009) WALKER ti RCA Family History Father , age 70 Stroke Myocardial infarction Coronary heart disease Social History Preferred Language: Albanian Communication Ability: Effective Visual Impairment: No Limitations Hearing Ability: Use of Hearing Aid Supervisor Paint Required: No Beliefs That Will Affect Care: None marital status: Current Living Situation: Spouse current occupational status: retired Feels Safe at Home: Yes Safety Concerns: Feels Safe At This Time Smoking Status: Never smoker Second Hand Exposure: No ; Hx Alcohol Use: No Hx Substance Use: No caffeine: Yes Dental Care, Regularly: Yes Physical Activity Frequency: 3-4 Times per Week Seatbelt Use: always Sunscreen Use: Yes Review of Systems Review of Systems: All systems reviewed & are unremarkable except as noted in HPI & below Physical Exam Constitutional: well developed and well nourished; no acute distress Respiratory: normal respiratory effort; no respiratory distress Cardiovascular: trace lower extremity edema Gastrointestinal (Abdomen): Inspection/Auscultation: abdomen normal to inspection; abdomen not distended Percussion/Palpation: abdomen soft; abdomen nontender Neurologic: moves all extremities and awake Psychiatric: A+Ox3, euthymic affect Orientation: cooperative Genitourinary: no CVA tenderness Results & Data Vital Signs (Past 12 Hours) Vital Signs Temp Pulse Pulse Resp BP Pulse Ox 03/03/19 09:07 65 128/57 L 03/03/19 07:30 36.8 C 66 18 108/54 L 97 03/03/19 07:00 62 03/03/19 04:00 36.7 C 72 16 107/57 L 97 03/02/19 23:34 73 03/02/19 23:01 36.7 C 76 18 101/51 L 99 PG Care Time/CCT Total # of Minutes Spent Total Time Spent with Patient: Total time spent is greater than 50% in coordination of care (as documented) at patient's floor/unit and/or counseling patient:
--- NOTE | 2019-03-03 09:46 | Nephrology Progress Note ---
Date of Service March 03, 2019 Assessment & Plan (1) SHAVONNE (acute kidney injury): 68-year-old gentlemen admitted with acute kidney injury and hypercalcemia. Baseline had decent renal function. History of recent loss of weight and loss of appetite. No personal history of malignancy. Has not been on hydrochlorothiazide or high dose of calcium or vitamin-D supplement. Recent PSA was normal. CT C/A/P on 03/02/18 showed left [place] and possible Lymphoma. SHAVONNE in the setting of left-sided hydronephrosis and hypercalcemia with possible new diagnosis of lymphoma. Clinically stable, blood pressure well controlled and has been having decent urine output. Volume status acceptable. Plan for cystoscopy and b/l ureteral stent today. --continue on IV normal saline, calcium seem to be improving with hydration only --considering acute kidney injury, hypercalcemia, recent a change in weight, w ill order CT chest abdomen and pelvis to evaluate for any underlying occult malignancy --pending PTHrP, vitamin-D and paraproteinemia workup --okay to continue on lisinopril, avoid nephrotoxic medications including NSAIDs. --dose medications for GFR less than 30 --left arm nephrology precaution Will follow (2) Hypercalcemia: (3) Hypertension: (4) Dyslipidemia: (5) Arteriosclerotic coronary artery disease: (6) T2DM (type 2 diabetes mellitus): Cuauhtemoc Ruby was seen and examined this am with Fely at bedside. Overall feeling about the same, NPO for Ureteral stent. Decent UO, BP stable. Ca better, cr stable. Review of Systems Review of Systems: All systems reviewed & are unremarkable except as noted in HPI & below Physical Exam Constitutional: well developed and well nourished; no acute distress Respiratory: normal respiratory effort, lungs clear to auscultation Cardiovascular: RRR, no murmur, no edema Neurologic: moves all extremities and awake; not confused Psychiatric: A+Ox3, euthymic affect Results & Data Vital Signs (Past 12 Hours) Vital Signs Temp Pulse Pulse Resp BP Pulse Ox 03/03/19 09:07 65 128/57 L 03/03/19 07:30 36.8 C 66 18 108/54 L 97 03/03/19 07:00 62 03/03/19 04:00 36.7 C 72 16 107/57 L 97 03/02/19 23:34 73 03/02/19 23:01 36.7 C 76 18 101/51 L 99 PG Care Time/CCT Total # of Minutes Spent Total Time Spent with Patient: Total time spent is greater than 50% in supply chain coordinator rdination of care (as documented) at patient's floor/unit and/or counseling patient:
--- NOTE | 2019-03-03 10:52 | Anesthesiology Consultation ---
Date of Service March 03, 2019 Assessment & Plan (1) Encounter for pre-operative examination: Chart Review Chart Review: Acceptable Risk for Surgery and Patient NOT seen in Pre Admission Testing Consults Requested none History Surgery Operation Date: 03/03/19 07:30 Proposed Procedures p Cystoscopy, Bilateral Retrograde; Stent Placement - Mehul Hussein MD Height/Weight Height: 5 ft 8 in Weight: 99.2 kg Allergies Allergy/AdvReac Type Severity Reaction Status Date / Time No Known Allergies Allergy Verified 03/01/19 18:21 Medications Home Medications Medication Instructions Recorded Confirmed Last Taken atorvastatin 80 mg tablet 80 mg PO HS #90 tab 10/08/18 03/01/19 02/28/19 acetaminophen 500 mg tablet 1,000 mg PO TID PRN #90 tab 11/29/18 03/01/19 Unknown amoxicillin 500 mg capsule See Rx Instructions .ROUTE 11/29/18 03/01/19 Unknown .COMPLEX cap blood sugar diagnostic #10 ea 11/29/18 02/28/19 Unknown fluticasone propionate 50 1 sprays INTRANASAL DAILY PRN #3 gm 11/29/18 03/01/19 Unknown mcg/actuation nasal spray,suspension lancets #50 ea 11/29/18 02/28/19 Unknown metoprolol succinate 50 mg 50 mg PO QAM #90 tab 11/29/18 03/01/19 03/01/19 tablet,extended release 24 hr sitagliptin 50 mg-metformin 1,000 1 tab PO BID #180 tab 02/04/19 03/01/19 03/01/19 mg tablet AM DOSE aspirin 81 mg PO QPM 03/01/19 03/01/19 02/28/19 levothyroxine 100 mcg PO QAM 03/01/19 03/01/19 03/01/19 lisinopril 10 mg PO QPM 03/01/19 03/01/19 02/28/19 Active Medications Generic Name Dose Route Start Last Admin Trade Name Freq PRN Reason Stop Dose Admin Aspirin 81 mg 03/01/19 21:44 03/02/19 20:26 Ecotrin Ectab PO 03/31/19 21:43 81 mg QPM DARYL Administration Atorvastatin Calcium 80 mg 03/01/19 21:44 03/02/19 20:25 Lipitor PO 03/31/19 21:43 80 mg HS DARYL Administration Heparin Sodium (Porcine) 5,000 units 03/01/19 21:44 03/03/19 08:54 Heparin Sodium (Porcine) SQ 03/31/19 21:43 Not Given Q12 DARYL Sodium Chloride 1,000 mls @ 100 mls/hr 03/01/19 21:44 03/03/19 10:40 Nss 1000ml IV 03/31/19 21:43 0 mls/hr .Q10H DARYL Infusion Ceftriaxone Sodium 2,000 mg/ 70 mls @ 140 mls/hr 03/02/19 14:00 03/02/19 15:59 Dextrose IV 03/09/19 13:59 Infused Q24H DARYL Infusion Insulin Aspart 0 units 03/01/19 22:00 03/03/19 11:01 Novolog Flexpen SC 03/31/19 21:59 Not Given ACHS DARYL Levothyroxine Sodium 100 mcg 03/02/19 06:30 03/03/19 05:35 Synthroid PO 04/01/19 06:29 100 mcg DAILYBB DARYL Administration Lisinopril 10 mg 03/01/19 21:44 03/02/19 20:26 Zestril PO 03/31/19 21:43 10 mg QPM DARYL Administration Metoprolol Succinate 50 mg 03/02/19 09:00 03/03/19 09:07 Toprol Xl PO 04/01/19 08:59 50 mg QAM DARYL Administration Past Medical History Medical History (Updated 03/03/19 @ 10:52 by Иван Luz MD) Arteriosclerotic coronary artery disease Bleeding external hemorrhoids (Inactive) Chronic osteoarthritis Dyslipidemia Gastroesophageal reflux disease Hypertension Hypothyroidism Severe sleep apnea T2DM (type 2 diabetes mellitus) Exercise / Class Metabolic Activity II 4-5 Yardwork/Stairs/Walk up hill Past Family History Family History Father , age 70 Stroke Myocardial infarction Coronary heart disease Past Surgical History Surgical History (Updated 03/03/19 @ 10:53 by Иван Luz MD) History of total knee arthroplasty R knee. S/P coronary artery stent placement (02/2009) WALKER to RCA Feb 2009. Past Anesthesia History No Hx of Anesthesia Complications and No Family Hx of Anesthesia Complications History of PONV No Hx of PONV and No Hx of Motion Sickness Social History Smoking Status: Never smoker Do You Dip or Chew Tobacco: No Hx Alcohol Use: No Hx Substance Use: No Physical Exam Vital Signs Last Vital Signs Temp 36.8 C 03/03/19 07:30 Pulse 65 03/03/19 09:07 Resp 18 03/03/19 07:30 BP 128/57 L 03/03/19 09:07 Pulse Ox 97 03/03/19 07:30 Testing Laboratory Results 03/03/19 05:31 03/03/19 05:31 Hemoglobin A1c 7.0 % (4.5-5.6) H 03/02/19 05:17 Urine Color Yellow 03/01/19 18:20 Urine Appearance Clear (Clear) 03/01/19 18:20 Urine pH 6.5 (4.5-7.5) 03/01/19 18:20 Ur Specific [place] 1.014 (1.000-1.030) 03/01/19 18:20 Urine Protein Trace (Negative) H 03/01/19 18:20 Urine Glucose (UA) Negative (Negative) 03/01/19 18:20 Urine Ketones Negative (Negative) 03/01/19 18:20 Urine Nitrite Negative (Negative) 03/01/19 18:20 Ur Leukocyte Esterase Negative (Negative) 03/01/19 18:20 Urine WBC (Auto) 1-5 /hpf (0-5) 03/01/19 18:20 Urine RBC (Auto) 0-4 /hpf (0-4) 03/01/19 18:20 U Hyaline Cast (Auto) 1-5 /lpf (0-5) 03/01/19 18:20 U Epithel Cells (Auto) 5-10 /lpf (0-5) H 03/01/19 18:20 Urine Bacteria (Auto) Negative (Negative) 03/01/19 18:20 03/03/19 03/03/19 03/02/19 10:35 07:45 16:52 POC Glucose 104 H 101 H 88 Electrocardiogram Date: 03/03/19 Findings: + NSR @ (62) Normal sinus rhythm Normal ECG When compared with ECG of 06-JUN-2011 12:09, No significant change was found
[2019-03-03] MEDS ORDERED: ATROPINE SULFATE 0.1 MG/ML 10ML SYR IV PRN (11:11)
[2019-03-03] MEDS ORDERED: ePHEDrine sulfate 50 MG/ML AMP IV PRN (11:11)
[2019-03-03] MEDS ORDERED: ONDANSETRON INJ 2 MG/ML 2 ML VIAL IV PRN (11:11)
[2019-03-03] MEDS ORDERED: fentaNYL citrate 100 MCG/2 ML VIAL IV PRN (11:11)
[2019-03-03] MEDS ORDERED: IOTHALAMATE MEGLUMINE II 17.2% 250 ML VIAL ONE (11:22)
--- NOTE | 2019-03-03 11:35 | Operative Report ---
[facility] Post Operative Report Pre & Post Diagnosis Operation Date: 03/03/19 07:30 Preoperative diagnosis: Left greater than right sided hydronephrosis, renal failure, retroperitoneal lymphadenopathy. Postoperative diagnosis: Same, bulbar urethral stricture. Procedure: Optical internal urethrotomy, cystogram, cystoscopy, bilateral retrograde pyelography, bilateral ureteral stent placement. Surgeon: Dr. Mehul Hussein. Anesthesia: Monitored anesthesia care with sedation. Findings:, Left greater than right sided hydronephrosis, good stent position after completion of case on fluoroscopic examination. Drains left in place: 6 [place]ovan multilength stents bilaterally, 20 [place] quechan catheter with 10 cc of sterile water in the balloon. Specimen sent to pathology: None. Complications: None I identified the patient and participated in the time-out.: Yes Procedure Operation Date: 03/03/19 07:30 Brief history: Patient is a pleasant 78-year-old male who is suffering from lower extremity swelling and acute renal failure who underwent CT scan of the abdomen and pelvis demonstrating retroperitoneal lymphadenopathy suspicious for a lymphoproliferative disorder. He is undergoing evaluation but his creatinine is unimproved with IV hydration. He is being brought to the operating room today urgently for decompression with bilateral ureteral stents. Please see urology consultation for further details. Intravenous ciprofloxacin low-dose is provided for antibiotic coverage. Informed consent reviewed with the patient preoperatively today. Procedure: Patient was prepped identified and brought into the operative suite after identification of appropriate consent in the chart. Monitored anesthesia care with sedation was initiated and patient was prepped and draped in the standard fashion for this procedure. Full timeout procedure was followed. 22 Moldovan rigid cystoscope was introduced into the urethra until it met with resistance at the level of the proximal bulbar urethra/distal prostatic urethra. Attempts to bypass this area with gentle scope dilation led to a slight false passage in the left side of the prostatic urethra. True urethral lumen could be easily visualized and was cannulated using an open-ended catheter. Contrast was placed within the bladder to ensure appropriate location. Urethrotome scope was introduced into the area of obstruction and a half-mills blade was used at the 12 o'clock position to open the patient's proximal bulbar urethral stricture. After this was complete the cystoscope was reintroduced and able to be passed to the level of the bladder under direct visualization. 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 Bladder was surveyed in its entirety demonstrating no intravesical lesions, papillary masses or calculi. Ureteral orifices were stenotic and somewhat difficult to appreciate but were found after location of the trigonal ridge. Right-sided ureteral orifice was addressed and gentle retrograde pyelography was performed gentle retrograde pyelography was performed using a 5 [place] open-ended catheter and [place]. This demonstrated a dilated ureter with a transition point in the mid ureter consistent with the patient CT scan imaging findings and proximal hydroureteronephrosis. Sensor tip wire was advanced up to the level of the right kidney followed by a 6 [place] multilength ureteral stent with redundant coils being present at the level of the renal pelvis and redundant coil present within the bladder. This procedure was then repeated on the left-hand side. Due to an area of obstruction at the level of the iliacs the distal ureter appeared to be quite dilated. Angled sensor tip wire was able to be advanced to the level of the left kidney with some difficulties in the open-ended catheter was used to dilate this up to the level of the renal pelvis. The proximal ureter was noted to be somewhat tortuous and dilated. Sensor tip wire was readvanced and a 6 [place]ovan multilength stent was able to be advanced to the level of the left renal pelvis with redundant coils being present proximally and a full coil being present within the bladder. Wire was replaced within the bladder lumen through the cystoscope and the cystoscope was backloaded off the wire. A 20 [place]ovan quechan catheter was placed within the lumen of the bladder with 10 cc of sterile water in the balloon. Drainage of clear irrigation was appreciated. Belladonna and opium suppository was provided for additional postoperative analgesia. Anesthesia was reversed and patient was transferred to the recovery room in stable condition. Follow-up CARE: Patient be returned to the floor for further management per the primary service. Ramirez catheter drainage x2 weeks to allow for healing of the patient's strictured area. Findings are reviewed with the patient and the patient's preoperatively who vocalized good understanding of the urologic plan. Surgeon Mehul Hussein MD Telephone Recorder None Estimated Blood Loss 5 Findings Consistent with Post-Op Diagnosis Specimens None Description of Procedure See above I attest to the content of the Intraoperative Record and any orders documented therein. Any exceptions are noted below.
[2019-03-03] MEDS ORDERED: LIDOCAINE HCL 2% 2 ML VIAL/AMP(20MG/ML) INFIL ONE ×2 (11:43→15:26)
[2019-03-03] MEDS ORDERED: fentaNYL citrate 100 MCG/2 ML VIAL ONE ×2 (11:43→15:26)
[2019-03-03] MEDS ORDERED: PROPOFOL IV EMULSION 10 MG/ML 20 ML VIAL IV ONE ×4 (11:43→18:04)
[2019-03-03] MEDS ORDERED: BELLADONNA/OPIUM SUPP 60 MG SUPP PR ONE ×2 (12:07→12:09)
[2019-03-03] MEDS: cefTRIAXone SODIUM 2,000 MG in DEXTROSE 5% 50 ML IV SCH (13:03)
--- NOTE | 2019-03-03 13:11 | Fluoroscopy Report ---
FL retrograde includes kub CLINICAL HISTORY: Bilateral stent placement COMPARISON STUDY: CT scan dated 03/02/2019 FLUOROSCOPY TIME: 2014 seconds. NUMBER OF FLUOROSCOPIC IMAGES: 9 FINDINGS: Fluoroscopic spot images were obtained during the placement of bilateral nephroureteral gaurav nts. Areas of ureteral narrowing and irregularity, are likely extrinsic, and secondary to the patient 's known adenopathy. IMPRESSION: Fluoroscopic spot imaging obtained during placement of bilateral nephroureteral stents. ACT 112: Negative or not required by law. Electronically signed by: Jered Keene M.D. 03/03/2019 1:10 PM
--- NOTE | 2019-03-03 14:46 | Surgery Consultation ---
Date of Consultation March 03, 2019 Assessment & Plan (1) Lymphadenopathy: 78 year-old male who presented to emergency department with complaint of abnormal kidney function tests which was found with outpatient labs and found to have acute kidney injury. He underwent Cystoscopy with bilateral stent placement today for hydronephrosis likely secondary to obstruction due to lymphadenopathy. He had CT scan of abd/pelvis/chest which showed diffuse lymphadenopathy concerning for possible lymphoma. Examination shows right cervical, bilateral axillary lymphadenopathy more palpable on left. Plan: Plan for excisional biopsy of left axillary lymph node today under sedation. Discussed with anesthesiology given prior sedation this morning for cystoscopy. Dr. Amaral discussed procedure and risks and informed consent obtained. Keep NPO Dr. Amaral has seen and examined patient, please see addendum for further recommendations/plan. Supervising Physician Co-Signing Physician Notes I interviewed and examined this patient I agree with the above note. The patient has lymphadenopathy in the chest abdomen axilla and neck. We are planning for excisional biopsy of the left axillary lymph node hopefully for diagnosis. I explained to him the procedure possible complications and answers questions. He signed a consent form. History of Present Illness Reason for Consultation: Excisional biopsy lymphadenopathy Requesting Physician: Dr. Smith Attending Physician: Rivera Smith History of Present Illness Chavez is a 78 year-old male who presented to emergency department due to sw elling in left foot as well as abnormal labs which showed acute kidney injury. He underwent imaging which showed diffuse lymphadenopathy as well as hydronephrosis likely due to retroperitoneal lymphadenopathy. [place] states that his appetite has been slightly less but still able to eat normally. Denies of any fever, chills, night sweats, weight loss, nausea or vomiting. States he had cardiac stent placed about 9 years ago and right knee replacement. No abdominal surgeries before. Takes 81 mg of aspirin no other blood thinners. Allergies Allergy/AdvReac Type Severity Reaction Status Date / Time No Known Allergies Allergy Verified 03/01/19 18:21 Home Medications Home Medications Medication Instructions Recorded Confirmed Type atorvastatin 80 mg tablet 80 mg PO HS #90 tab 10/08/18 03/01/19 Rx acetaminophen 500 mg tablet 1,000 mg PO TID PRN #90 tab 11/29/18 03/01/19 History amoxicillin 500 mg capsule See Rx Instructions .ROUTE 11/29/18 03/01/19 History .COMPLEX cap blood sugar diagnostic #10 ea 10/07/19 01/06/20 History fluticasone propionate 50 1 sprays INTRANASAL DAILY PRN #3 gm 11/29/18 03/01/19 History mcg/actuation nasal spray,suspension lancets #50 ea 11/29/18 02/28/19 History metoprolol succinate 50 mg 50 mg PO QAM #90 tab 11/29/18 03/01/19 History tablet,extended release 24 hr sitagliptin 50 mg-metformin 1,000 1 tab PO BID #180 tab 02/04/19 03/01/19 Rx mg tablet aspirin 81 mg PO QPM 03/01/19 03/01/19 History levothyroxine 100 mcg PO QAM 03/01/19 03/01/19 History lisinopril 10 mg PO QPM 03/01/19 03/01/19 History Patient History Medical History (Updated 03/03/19 @ 14:47 by Erin Mcallister PA-C) Arteriosclerotic coronary artery disease Bleeding external hemorrhoids (Inactive) Chronic osteoarthritis Dyslipidemia Gastroesophageal reflux disease Hypertension Hypothyroidism Severe sleep apnea T2DM (type 2 diabetes mellitus) Surgical History (Updated 03/03/19 @ 10:53 by Иван Luz MD) History of total knee arthroplasty R knee. S/P coronary artery stent placement (02/2009) WALKER to RCA Feb 2009. Family History Father , age 70 Stroke Myocardial infarction Coronary heart disease Social History Preferred Language: Latvian Communication Ability: Effective Visual Impairment: No Limitations Hearing Ability: Use of Hearing Aid Organic Extractions Technician Required: No Beliefs That Will Affect Care: None marital status: Current Living Situation: Spouse current occupational status: retired Feels Safe at Home: Yes Smoking Status: Never smoker Second Hand Exposure: No ; Hx Alcohol Use: No Hx Substance Use: No caffeine: Yes Dental Care, Regularly: Yes Physical Activity Frequency: 3-4 Times per Week Seatbelt Use: always Sunscreen Use: Yes Review of Systems Review of Systems: All systems reviewed & are unremarkable except as noted in HPI & below Physical Exam Constitutional: WD/WN, vitals as above no acute distress Neck: right cervical lymphadenopathy Respiratory: normal respiratory effort, lungs clear to auscultation Gastrointestinal (Abdomen): minimal bilateral inguinal lymphadenopathy Skin: no rashes, warm and dry Psychiatric: A+Ox3, euthymic affect Lymphatic: + cervical lymphadenopathy (Right cervical), + axillary lymphadenopathy (bilateral, more palpable on left) and + inguinal lymphadenopathy (very minimal) Results & Data Vital Signs (Past 12 Hours) Vital Signs Temp Pulse Pulse Pulse Resp BP BP 03/03/19 13:05 36.5 C 58 L 18 126/61 03/03/19 12:56 62 03/03/19 12:53 36.8 C 58 L 18 126/57 L 03/03/19 12:35 36.4 C L 59 L 16 107/50 L 03/03/19 12:25 61 16 123/59 L 03/03/19 12:19 36.1 C L 69 16 120/58 L 03/03/19 10:57 36.9 C 69 18 138/67 03/03/19 10:40 36.8 C 63 18 124/66 03/03/19 09:07 65 128/57 L 03/03/19 07:30 36.8 C 66 18 108/54 L 03/03/19 07:00 62 03/03/19 04:00 36.7 C 72 16 107/57 L Pulse Ox 03/03/19 13:05 99 03/03/19 12:56 03/03/19 12:53 99 03/03/19 12:35 99 03/03/19 12:25 100 03/03/19 12:19 100 03/03/19 10:57 95 03/03/19 10:40 03/03/19 09:07 03/03/19 07:30 97 03/03/19 07:00 03/03/19 04:[address] abd pelvis wo con CLINICAL HISTORY: 78 years-old Male presenting with Weight loss, hypercalcemia, SHAVONNE,?occult malignancy. TECHNIQUE: Multidetector CT of the abdomen and pelvis was performed without the use of intravenous contrast. IV contrast: None. One or more dose lowering techniques were used consistent with the principles of ALARA (as low as reasonably achievable), including automatic exposure control, mA or kV adjustment to individual patient size, and/or use of iterative reconstruction. COMPARISON: None. CT DOSE (mGy.cm): The estimated cumulative dose is 1060.34 mGycm. 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 Lung bases: Borderline enlargement of the heart. Coronary artery, aortic valve, and mitral annular calcification. Trace bilateral pleural effusions. Minimal dependent changes likely atelectasis. Liver: Normal morphology. Normal density. Cyst suspected along the anterior liver. Biliary: No gross biliary ductal dilatation allowing for noncontrast technique. Gallbladder decompressed. Pancreas: Mild parenchymal atrophy. Spleen: Normal noncontrast appearance. Adrenal glands: Normal noncontrast appearance. Kidneys and ureters: Mild to moderate left pelvocaliectasis and distention of the left ureter. The left ureter traverses abnormal retroperitoneal soft tissue. The distalmost left ureter is nondistended. No right hydronephrosis or hydroureter. Moderate bilateral perinephric fat stranding slightly greater on the left. No nephrolithiasis. Bladder: Circumferential bladder wall thickening. Pelvic organs: Prostate enlargement likely secondary to benign prostatic hyperplasia. Bowel: Mild diverticulosis of the mid sigmoid colon without wall thickening or pericolonic inflammatory change. The appendix is normal. No bowel obstruction. Trace sliding type hiatal hernia. Peritoneal cavity: No free fluid or intraperitoneal gas. Trace retroperitoneal fluid bilaterally. Extends into the extraperitoneal pelvis and presacral region. Lymph nodes: Conglomerate retroperitoneal soft tissue extending superiorly to the right retrocrural region and most extensively in the pericaval, aortocaval, and left periaortic regions. There is also left common iliac conglomerate lymphadenopathy. Bilateral external iliac lymphadenopathy is evident. Inguinal lymph nodes are not significantly enlarged. An index node in the right external iliac region measures 15 mm in short axis. Vasculature: Atherosclerosis of the normal caliber abdominal aorta. Up lifting of the aorta from the vertebral bodies noted. Abdominal wall: Bilateral fat-containing inguinal hernias, left greater than right. Musculoskeletal: Degenerative changes of the spine. Mild heterogeneity of bone marrow. No focal destructive lesion is appreciated. IMPRESSION: 1. Extensive retroperitoneal lymphadenopathy extending from the right retrocrural region superiorly to the bilateral external iliac regions inferiorly. A notable lymph node in the right external iliac region would be amenable to percutaneous biopsy, potentially ultrasound-guided. Differential considerations favor lymphoproliferative disease/lymphoma or less likely a urothelial or prostatic etiology given the presence of moderate left hydroureteronephrosis. 2. No convincing evidence of osseous metastatic disease on the current exam. Osseous involvement may be better assessed with PET CT or bone scan versus random bone marrow biopsy in the setting of lymphoma. 3. 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 ACT 112: Positive. There are findings on this exam that require communication between the performing entity and the patient following Patient Test Result Information Act ([place] Act 112) guidelines. CT OF THE CHEST WITHOUT IV CONTRAST CLINICAL HISTORY: Weight loss, hypercalcemia, SHAVONNE,?occult malignancy COMPARISON STUDY: Chest radiograph June 06, 2011. CT DOSE: 559.38 mGycm TECHNIQUE: Axial images of the chest were obtained without IV contrast. Images were reviewed in the axial, sagittal, and coronal planes. IV contrast was not administered for this examination. Automated exposure control was utilized for the study. A dose lowering technique was utilized adhering to the principles of ALARA. FINDINGS: Multiple mildly enlarged bilateral axillary lymph nodes are noted. Index right axillary node on image 41 of 256 measures 2.2 cm. An index right retropectoral lymph node on image 61 measures 1.7 cm. There is ill-defined soft tissue along the right scalene muscles. There is also ill-defined right anterior mediastinal soft tissue which extends through the chest wall. This measures 7 x 5.6 x 4.8 cm. There is no associated bony destruction. There is mild infiltrative left upper anterior mediastinal soft tissue as well. Note is made of a retrocrural/para-aortic soft tissue/lymphadenopathy which is better depicted on the CT of the abdomen and pelvis. Mildly enlarged right hilar lymph nodes are present. There is no pneumothorax. Trace bilateral pleural effusions are noted. The heart is moderately enlarged. Extensive coronary artery calci fication is noted. There are no suspicious pulmonary nodules. Skeletal structures are heterogeneous with sclerosis of the T7 vertebral body. IMPRESSION: 1. Multifocal infiltrative soft tissue/lymphadenopathy, including right anterior upper mediastinal soft tissue which extends through the chest wall. Retrocrural/para-aortic infiltrative soft tissue/lymphadenopathy. Multiple mildly enlarged bilateral axillary, right retropectoral, mediastinal and right hilar lymph nodes. Overall, the findings strongly suggest lymphoma. 2. Trace bilateral pleural effusions. 3. Moderate cardiomegaly. Extensive coronary artery calcification. 4. Heterogeneity of the thoracic spine, most notably T7. This is nonspecific but may reflect lymphomatous involvement.
--- NOTE | 2019-03-03 14:58 | Anesthesiology Progress Note ---
Date of Service March 03, 2019 Anesthesia Post Procedure Vital Signs Vital Signs: Temp Pulse Pulse Pulse Resp BP BP 03/03/19 13:05 36.5 C 58 L 18 126/61 03/03/19 12:56 62 03/03/19 12:53 36.8 C 58 L 18 126/57 L 03/03/19 12:35 36.4 C L 59 L 16 107/50 L 03/03/19 12:25 61 16 123/59 L 03/03/19 12:19 36.1 C L 69 16 120/58 L 03/03/19 10:57 36.9 C 69 18 138/67 03/03/19 10:40 36.8 C 63 18 124/66 03/03/19 09:07 65 128/57 L 03/03/19 07:30 36.8 C 66 18 108/54 L 03/03/19 07:00 62 03/03/19 04:00 36.7 C 72 16 107/57 L 03/02/19 23:34 73 03/02/19 23:01 36.7 C 76 18 101/51 L 03/02/19 16:11 72 03/02/19 15:06 37.0 C 73 18 136/69 Pulse Ox 03/03/19 13:05 99 03/03/19 12:56 03/03/19 12:53 99 03/03/19 12:35 99 03/03/19 12:25 100 03/03/19 12:19 100 03/03/19 10:57 95 03/03/19 10:40 03/03/19 09:07 03/03/19 07:30 97 03/03/19 07:00 03/03/19 04:00 97 03/02/19 23:34 03/02/19 23:01 99 03/02/19 16:11 03/02/19 15:06 100 Transfer of Care Handoff Completed per policy Notes Mental Status: alert / awake / arousable and participated in evaluation Patient Amnestic to Procedure: Yes Nausea / Vomiting: adequately controlled Pain: adequately controlled Airway Patency, RR, SpO2: stable & adequate BP & HR: stable & adequate Hydration State: stable & adequate Anesthetic Complications: no major complications apparent and Pt Satisfied with anesthetic care
[2019-03-03] MEDS ORDERED: BUPIVACAINE 0.5 % 5 MG/1 ML MPF 30ML VIAL ONE (15:08)
[2019-03-03] MEDS ORDERED: LIDOCAINE HCL 1% 20 ML VIAL ONE (15:08)
[2019-03-03] MEDS ORDERED: ONDANSETRON INJ 2 MG/ML 2 ML VIAL ONE (15:26)
[2019-03-03] MEDS ORDERED: MIDAZOLAM HCL 1 MG/ML 2ML VIAL ONE (15:27)
--- NOTE | 2019-03-03 16:59 | Anesthesiology Consultation ---
Date of Service March 03, 2019 Assessment & Plan ASA ASA3 Proposed Anesthesia Anesthesia Type: MAC Risk / Benefits Reviewed With: PT / POA / Parent / Guardian, Accepts Plan and Informed Consent Obtained History Surgery Operation Date: 03/03/19 07:30 Proposed Procedures p Cystoscopy, Bilateral Retrograde; Stent Placement - Mehul Hussein MD Operation Date: 03/03/19 12:25 Proposed Procedures p Left Axillary Excision Lymph Node Biopsy - Benito Amaral MD Height/Weight Height: 5 ft 8 in Weight: 99.2 kg Allergies Allergy/AdvReac Type Severity Reaction Status Date / Time No Known Allergies Allergy Verified 03/01/19 18:21 Medications Home Medications Medication Instructions Recorded Confirmed Last Taken atorvastatin 80 mg tablet 80 mg PO HS #90 tab 10/08/18 03/01/19 02/28/19 acetaminophen 500 mg tablet 1,000 mg PO TID PRN #90 tab 11/29/18 03/01/19 Unknown amoxicillin 500 mg capsule See Rx Instructions .ROUTE 11/29/18 03/01/19 Unknown .COMPLEX cap blood sugar diagnostic #10 ea 11/29/18 02/28/19 Unknown fluticasone propionate 50 1 sprays INTRANASAL DAILY PRN #3 gm 11/29/18 03/01/19 Unknown mcg/actuation nasal spray,suspension lancets #50 ea 11/29/18 02/28/19 Unknown metoprolol succinate 50 mg 50 mg PO QAM #90 tab 11/29/18 03/01/19 03/01/19 tablet,extended release 24 hr sitagliptin 50 mg-metformin 1,000 1 tab PO BID #180 tab 02/04/19 03/01/19 03/01/19 mg tablet AM DOSE aspirin 81 mg PO QPM 03/01/19 03/01/19 02/28/19 levothyroxine 100 mcg PO QAM 03/01/19 03/01/19 03/01/19 lisinopril 10 mg PO QPM 03/01/19 03/01/19 02/28/19 Active Medications Generic Name Dose Route Start Last Admin Trade Name Freq PRN Reason Stop Dose Admin Aspirin 81 mg 03/01/19 21:44 03/02/19 20:26 Ecotrin Ectab PO 03/31/19 21:43 81 mg QPM DARYL Administration Atorvastatin Calcium 80 mg 03/01/19 21:44 03/02/19 20:25 Lipitor PO 03/31/19 21:43 80 mg HS DARYL Administration Heparin Sodium (Porcine) 5,000 units 03/01/19 21:44 03/03/19 08:54 Heparin Sodium (Porcine) SQ 03/31/19 21:43 Not Given Q12 DARYL Sodium Chloride 1,000 mls @ 100 mls/hr 03/01/19 21:44 03/03/19 13:03 Nss 1000ml IV 03/31/19 21:43 100 mls/hr .Q10H DARYL Administration Ceftriaxone Sodium 2,000 mg/ 70 mls @ 140 mls/hr 03/02/19 14:00 03/03/19 13:55 Dextrose IV 03/09/19 13:59 Infused Q24H DARYL Infusion Ciprofloxacin Lactate 200 mg in 100 mls @ 100 mls/hr 03/03/19 06:00 03/03/19 13:00 Cipro / D5w IV 03/03/19 18:00 Infused PREOP DARYL Infusion Protocol Insulin Aspart 0 units 03/01/19 22:00 03/03/19 11:01 Novolog Flexpen SC 03/31/19 21:59 Not Given ACHS DARYL Levothyroxine Sodium 100 mcg 03/02/19 06:30 03/03/19 05:35 Synthroid PO 04/01/19 06:29 100 mcg DAILYBB DARYL Administration Lisinopril 10 mg 03/01/19 21:44 03/02/19 20:26 Zestril PO 03/31/19 21:43 10 mg QPM DARYL Administration Metoprolol Succinate 50 mg 03/02/19 09:00 03/03/19 09:07 Toprol Xl PO 04/01/19 08:59 50 mg QAM DARYL Administration NPO Date Last Intake of Fluids: 03/03/19 Time Last Intake of Fluids: 10:00 Last Intake of Fluids Comment: Sip water with meds Date Last Intake of Solids: 03/02/19 Time Last Intake of Solids: 20:00 Past Medical History Medical History (Updated 03/03/19 @ 14:47 by Erin Mcallister PA-C) Arteriosclerotic coronary artery disease Bleeding external hemorrhoids (Inactive) Chronic osteoarthritis Dyslipidemia Gastroesophageal reflux disease Hypertension Hypothyroidism Severe sleep apnea T2DM (type 2 diabetes mellitus) Exercise / Class Metabolic Activity II 4-5 Yardwork/Stairs/Walk up hill Past Family History Family History Father , age 70 Stroke Myocardial infarction Coronary heart disease Past Surgical History Surgical History (Updated 03/03/19 @ 10:53 by Иван Luz MD) History of total knee arthroplasty R knee. S/P coronary artery stent placement (02/2009) WALKER to RCA Feb 2009. Past Anesthesia History No Hx of Anesthesia Complications and No Family Hx of Anesthesia Complications History of PONV No Hx of PONV and No Hx of Motion Sickness Social History Smoking Status: Never smoker Do You Dip or Chew Tobacco: No Hx Alcohol Use: No Hx Substance Use: No Review of Systems denies fever/cough/ colds/ chest pain/ SOB/ DIA denies [place]/CVA/Seizure Physical Exam Vital Signs Last Vital Signs Temp 37 C 03/03/19 16:43 Pulse 65 03/03/19 16:58 Resp 16 03/03/19 16:43 BP 135/70 03/03/19 16:43 Pulse Ox 100 03/03/19 16:43 ENMT Mouth: no TMJ abnormality and no dentition abnormality Thyromental Distance: > or= 3.5 Finger Breadths Mallampati Class: II Neck neck extension not limited Respiratory normal respiratory effort; no respiratory distress Auscultation: lungs clear to auscultation bilaterally Cardiovascular Rate/Rhythm: regular rate and regular rhythm Heart Sounds: + murmur (3/6 SYSTOLIC) Neurologic moves all extremities Psychiatric Orientation: alert and oriented x 3 Testing Laboratory Results 03/03/19 05:31 03/03/19 05:31 Hemoglobin A1c 7.0 % (4.5-5.6) H 03/02/19 05:17 Urine Color Yellow 03/01/19 18:20 Urine Appearance Clear (Clear) 03/01/19 18:20 Urine pH 6.5 (4.5-7.5) 03/01/19 18:20 Ur Specific [place] 1.014 (1.000-1.030) 03/01/19 18:20 Urine Protein Trace (Negative) H 03/01/19 18:20 Urine Glucose (UA) Negative (Negative) 03/01/19 18:20 Urine Ketones Negative (Negative) 03/01/19 18:20 Urine Nitrite Negative (Negative) 03/01/19 18:20 Ur Leukocyte Esterase Negative (Negative) 03/01/19 18:20 Urine WBC (Auto) 1-5 /hpf (0-5) 03/01/19 18:20 Urine RBC (Auto) 0-4 /hpf (0-4) 03/01/19 18:20 U Hyaline Cast (Auto) 1-5 /lpf (0-5) 03/01/19 18:20 U Epithel Cells (Auto) 5-10 /lpf (0-5) H 03/01/19 18:20 Urine Bacteria (Auto) Negative (Negative) 03/01/19 18:20 03/03/19 03/03/19 03/03/19 12:23 10:35 07:45 POC Glucose 97 104 H 101 H
[2019-03-03] MEDS ORDERED: KETAMINE HCL INJ 50 MG/ML 10 ML VIAL ONE (17:02)
--- NOTE | 2019-03-03 18:24 | Post Operative Brief Note ---
Immediate Post Op Note v1 Date of Surgery March 03, 2019 Pre & Post Diagnosis Operation Date: 03/03/19 07:30 Pre-Op Diagnosis: Left and Right Hydronephrosis, retroperitoneal lymphadenopathy Post-Op Diagnosis: Left and Right hydronephrosis; retroperitoneal lymphadenopathy ; Urethral Stricture Operation Date: 03/03/19 12:25 Pre-Op Diagnosis: ACUTE KIDNEY INJURY,LLE CELLULITIS, lympadenopathy Post-Op Diagnosis: ACUTE KIDNEY INJURY,LLE CELLULITIS, lymphadenopathy I identified the patient and participated in the time-out.: Yes Procedure Operation Date: 03/03/19 07:30 Actual Procedures p Optical Ureterotomy; Cystoscopy, Left Retrograde pyelography; Stent Placement(Bilateral) - Mehul Hussein MD Operation Date: 03/03/19 12:25 Actual Procedures p Excision Left Axillary Lymph Node Biopsy(Left) - Benito Amaral MD Surgeon Benito Amaral MD Regulatory Affairs Analyst None Estimated Blood Loss 3 Findings Consistent with Post-Op Diagnosis Specimens Left axillary lymph node Anesthesia Type MAC Complications none
--- NOTE | 2019-03-03 18:44 | Hospitalist Progress Note ---
Date of Service March 03, 2019 Assessment & Plan (1) Lymphadenopathy: Constellation of extensive lymphadenopathy on physical exam and on blackman-CT, hypercalcemia, etc all highly concerning for lymphoma. General surgery consulted today - s/p excisional axillary lymph node bx today. Appreciate their assistance. Await path but will ask heme/onc to formally consult. CBC in am for stability. (2) Hydronephrosis, left: And to a lesser extent on right. Likely due to bulky lymphadenopathy causing compression. s/p ureteral stent placement today by urology -- appreciate their assistance. Will follow BMP next 2-3 days to see if any of his acute renal failure was due to obstruction and if stents helped. (3) Cellulitis: L LE cellulitis - by report. NO erythema on exam today. Stop rocephin. Only took Keflex x 2 doses as outpt thus would not consider this a "treatment failure." Will revert back to keflex x 4 more days starting in am. The left leg is swollen - no DVT however on recent ultrasound -- etiology? (4) SHAVONNE (acute kidney injury): Intrinsic injury (hypercalcemia) vs obstructive (hydronephrosis from bulky lymphadenopathy) vs other. cont to treat hypercalcemia. s/p ureteral stents today. cont IVF. repeat BMP am. appreciate nephrology assistance. hold TAVON inhibitor. (5) Hypercalcemia: Likely 2nd to lymphoma process. Improving s/p fluids since admission. BMP/Ca in am. nephrology following. heme/onc to be consulted for suspected lymphoma. (6) T2DM (type 2 diabetes mellitus): Hold oral agents novolog ac/hs glycemic management per pharmacy - appreciate their assistance (7) Severe sleep apnea: CPAP HS (8) Hypothyroidism: Continue home dose of levothyroxine. TSH wnl this admission. (9) Hypertension: HOLD TAVON due to Acute kidney injury. Cont beta evonne. Adjust as needed. (10) Dyslipidemia: cont statin (11) Arteriosclerotic coronary artery disease: cont statin, asa, beta evonne no ischemic symptoms (12) DVT prophylaxis: heparin 5000 units every 12 hours extensively updated at bedside will need PT/OT Subjective saw patient following his ureteral stent placement he was resting comfortably at bedside he and his admitted to feeling overwhelmed by all of the news of the last 24 hours (possible lymphoma, need for biopsy to confirm diagnosis, etc) concerned that they didn't seek medical attention sooner in the fall but he had been feeling well at that time with no fevers, chills, sweats, or significant weight loss he did have some loss of appetite in the fall, however Review of Systems Constitutional: + fatigue; no fever and no chills Respiratory: no cough, no dyspnea and no dyspnea on exertion Cardiovascular: no chest pain Gastrointestinal: no abdominal pain, no nausea and no vomiting Physical Exam Constitutional: no acute distress and no altered mental status ENMT: external ear and nose normal, oropharynx normal Respiratory: normal respiratory effort, lungs clear to auscultation Cardiovascular: Rate/Rhythm: regular rate and regular rhythm Heart Sounds: normal S1, normal S2 and + murmur (2/6 RUSB systolic ) Vessels: posterior tibial pulses present and dorsalis pedis pulses present; no JVD Extremities: + edema (1+ left simpson, ankle, and foot; none on right) Gastrointestinal (Abdomen): normal bowel sounds, soft, nontender, no hepatosplenomegaly Skin: no erythema or cellulitis on left distal leg/ankle Psychiatric: A+Ox3, euthymic affect Lymphatic: + cervical lymphadenopathy (multiple, firm, fixed) and + axillary lymphadenopathy bilateral - firm, fixed nodes Results & Data Vital Signs (Past 12 Hours) Vital Signs Temp Pulse Pulse Pulse Resp BP BP 03/03/19 16:58 65 03/03/19 16:43 37 C 66 16 135/70 03/03/19 16:23 36.8 C 56 L 18 127/72 03/03/19 13:05 36.5 C 58 L 18 126/61 03/03/19 12:56 62 03/03/19 12:53 36.8 C 58 L 18 126/57 L 03/03/19 12:35 36.4 C L 59 L 16 107/50 L 03/03/19 12:25 61 16 123/59 L 03/03/19 12:19 36.1 C L 69 16 120/58 L 03/03/19 10:57 36.9 C 69 18 138/67 03/03/19 10:40 36.8 C 63 18 124/66 03/03/19 09:07 65 128/57 L 03/03/19 07:30 36.8 C 66 18 108/54 L 03/03/19 07:00 62 Pulse Ox 03/03/19 16:58 03/03/19 16:43 100 03/03/19 16:23 100 03/03/19 13:05 99 03/03/19 12:56 03/03/19 12:53 99 03/03/19 12:35 99 03/03/19 12:25 100 03/03/19 12:19 100 03/03/19 10:57 95 03/03/19 10:40 03/03/19 09:07 03/03/19 07:30 97 03/03/19 07:00 Laboratory Results Laboratory Results - last 24 hr 03/02/19 03/03/19 03/03/19 16:52 05:31 05:31 WBC 6.75 RBC 3.49 L Hgb 10.1 L Hct 30.7 L MCV 88.0 MCH 28.9 MCHC 32.9 RDW Std Deviation 45.9 RDW Coeff of Enrike 14.3 Plt Count 209 MPV 9.5 Immature Gran % (Auto) 0.3 Neut % (Auto) 70.7 Lymph % (Auto) 13.3 Josephine % (Auto) 12.6 Eos % (Auto) 2.8 Baso % (Auto) 0.3 Immature Gran # (Auto) 0.02 Neut # (Auto) 4.77 Lymph # (Auto) 0.90 L Josephine # (Auto) 0.85 H Eos # (Auto) 0.19 Baso # (Auto) 0.02 Sodium 139 Potassium 3.7 Chloride 107 Carbon Dioxide 26 Anion Gap 6.0 BUN 34 H Creatinine 3.05 H Est Cr Clr Drug Dosing 23.2 Est GFR ( Amer) 21.8 Est GFR (Non-Af Amer) 18.8 BUN/Creatinine Ratio 11.3 Glucose 91 POC Glucose 88 Calcium 10.5 H Total Bilirubin 0.4 AST 21 ALT 26 Alkaline Phosphatase 111 Total Protein 6.2 L Total Protein (PEP) Albumin 2.2 L Albumin (PEP) Globulin 4.0 Albumin/Globulin Ratio 0.6 L Riazv-3-Owcoqirzo Ybwrb-6-Wnnwzllzm Znom-3-Abrojvoi Sfrp-2-Dnjixunv Gamma Globulins Monoclonal Peak 3 Ser Monoclonl Protein Ser Monoclonal Prot 2 PEP Interpretation 03/03/19 03/03/19 03/03/19 05:31 07:45 10:35 WBC RBC Hgb Hct MCV MCH MCHC RDW Std Deviation RDW Coeff of Enrike Plt Count MPV Immature Gran % (Auto) Neut % (Auto) Lymph % (Auto) Josephine % (Auto) Eos % (Auto) Baso % (Auto) Immature Gran # (Auto) Neut # (Auto) Lymph # (Auto) Josephine # (Auto) Eos # (Auto) Baso # (Auto) Sodium Potassium Chloride Carbon Dioxide Anion Gap BUN Creatinine Est Cr Clr Drug Dosing Est GFR ( Amer) Est GFR (Non-Af Amer) BUN/Creatinine Ratio Glucose POC Glucose 101 H 104 H Calcium Total Bilirubin AST ALT Alkaline Phosphatase Total Protein Total Protein (PEP) Pending Albumin Albumin (PEP) Pending Globulin Albumin/Globulin Ratio Ztyzq-5-Reaxglkyf Pending [place]-6-Toemgvzdn Pending Daze-3-Fsyeupzn Pending Gmoa-9-Qntvwmph Pending Gamma Globulins Pending Monoclonal Peak 3 Pending Ser Monoclonl Protein Pending Ser Monoclonal Prot 2 Pending PEP Interpretation Pending 03/03/19 03/03/19 03/03/19 12:23 19:07 19:32 WBC RBC Hgb Hct MCV MCH MCHC RDW Std Deviation RDW Coeff of Enrike Plt Count MPV Immature Gran % (Auto) Neut % (Auto) Lymph % (Auto) Josephine % (Auto) Eos % (Auto) Baso % (Auto) Immature Gran # (Auto) Neut # (Auto) Lymph # (Auto) Josephine # (Auto) Eos # (Auto) Baso # (Auto) Sodium Potassium Chloride Carbon Dioxide Anion Gap BUN Creatinine Est Cr Clr Drug Dosing Est GFR ( Amer) Est GFR (Non-Af Amer) BUN/Creatinine Ratio Glucose POC Glucose 97 77 76 Calcium Total Bilirubin AST ALT Alkaline Phosphatase Total Protein Total Protein (PEP) Albumin Albumin (PEP) Globulin Albumin/Globulin Ratio Zudem-9-Fcjnjrwwv Bdurt-1-Mlwwounyn Xsix-3-Zzbzcbvs Fqle-3-Xsjswllc Gamma Globulins Monoclonal Peak 3 Ser Monoclonl Protein Ser Monoclonal Prot 2 PEP Interpretation 03/03/19 20:28 WBC RBC Hgb Hct MCV MCH MCHC RDW Std Deviation RDW Coeff of Enrike Plt Count MPV Immature Gran % (Auto) Neut % (Auto) Lymph % (Auto) Josephine % (Auto) Eos % (Auto) Baso % (Auto) Immature Gran # (Auto) Neut # (Auto) Lymph # (Auto) Josephine # (Auto) Eos # (Auto) Baso # (Auto) Sodium Potassium Chloride Carbon Dioxide Anion Gap BUN Creatinine Est Cr Clr Drug Dosing Est GFR ( Amer) Est GFR (Non-Af Amer) BUN/Creatinine Ratio Glucose POC Glucose 88 Calcium Total Bilirubin AST ALT Alkaline Phosphatase Total Protein Total Protein (PEP) Albumin Albumin (PEP) Globulin Albumin/Globulin Ratio Hwxov-8-Wxxglgvsx Eohqw-6-Hwlteenhx Gnmy-6-Quirleav Yxuw-3-Cfokfego Gamma Globulins Monoclonal Peak 3 Ser Monoclonl Protein Ser Monoclonal Prot 2 PEP Interpretation PG Care Time/CCT Total # of Minutes Spent Total Time Spent with Patient: Total time spent is greater than 50% in coordination of care (as documented) at patient's floor/unit and/or counseling patient: (1) T2DM (type 2 diabetes mellitus) Diabetes mellitus custodial insulin use: without long distance operator use Diabetes mellitus complication status: without complication Qualified Code(s): E11.9 - Type 2 diabetes mellitus without complications (2) Cellulitis Site of cellulitis: extremity Site of cellulitis of extremity: lower extremity Laterality: left Qualified Code(s): L03.116 - Cellulitis of left lower limb (3) Hypothyroidism Hypothyroidism type: acquired Qualified Code(s): E03.9 - Hypothyroidism, unspecified (4) Hypertension Hypertension type: essential hypertension Qualified Code(s): I10 - Essential (primary) hypertension
--- NOTE | 2019-03-03 18:51 | Anesthesiology Progress Note ---
Date of Service March 03, 2019 Anesthesia Post Procedure Vital Signs Vital Signs: Temp Pulse Pulse Pulse Resp BP BP 03/03/19 18:34 37.2 C 66 14 117/61 03/03/19 16:58 65 03/03/19 16:43 37 C 66 16 135/70 03/03/19 16:23 36.8 C 56 L 18 127/72 03/03/19 13:05 36.5 C 58 L 18 126/61 03/03/19 12:56 62 03/03/19 12:53 36.8 C 58 L 18 126/57 L 03/03/19 12:35 36.4 C L 59 L 16 107/50 L 03/03/19 12:25 61 16 123/59 L 03/03/19 12:19 36.1 C L 69 16 120/58 L 03/03/19 10:57 36.9 C 69 18 138/67 03/03/19 10:40 36.8 C 63 18 124/66 03/03/19 09:07 65 128/57 L 03/03/19 07:30 36.8 C 66 18 108/54 L 03/03/19 07:00 62 03/03/19 04:00 36.7 C 72 16 107/57 L 03/02/19 23:34 73 03/02/19 23:01 36.7 C 76 18 101/51 L Pulse Ox 03/03/19 18:34 99 03/03/19 16:58 03/03/19 16:43 100 03/03/19 16:23 100 03/03/19 13:05 99 03/03/19 12:56 03/03/19 12:53 99 03/03/19 12:35 99 03/03/19 12:25 100 03/03/19 12:19 100 03/03/19 10:57 95 03/03/19 10:40 03/03/19 09:07 03/03/19 07:30 97 03/03/19 07:00 03/03/19 04:00 97 03/02/19 23:34 03/02/19 23:01 99 Pain Intensity Left Axilla: Pain Intensity: 0 Transfer of Care Handoff Completed per policy Notes Mental Status: alert / awake / arousable and participated in evaluation Patient Amnestic to Procedure: Yes Nausea / Vomiting: adequately controlled Pain: adequately controlled Airway Patency, RR, SpO2: stable & adequate BP & HR: stable & adequate Hydration State: stable & adequate Anesthetic Complications: no major complications apparent and Pt Satisfied with anesthetic care
[2019-03-03] MEDS ORDERED: OXYCODONE/ACETAMINOPHEN 5mg/325mg TAB PO PRN (19:35)
[2019-03-03] MEDS: ASPIRIN 81 MG ECTAB PO SCH (20:05)
[2019-03-03] MEDS: lisinopriL 10 MG TAB PO SCH (20:05)
[2019-03-03] MEDS: ATORVASTATIN 40 MG TAB PO SCH (20:05)
--- NOTE | 2019-03-03 23:40 | Electrocardiogram Report ---
Test Reason : Blood Pressure : / mmHG Vent. Rate : 062 BPM Atrial Rate : 062 BPM P-R Int : 168 ms QRS Dur : 098 ms QT Int : 424 ms P-R-T Axes : 057 007 037 degrees QTc Int : 430 ms Normal sinus rhythm Normal ECG When compared with ECG of 06-JUN-2011 12:09, No significant change was found Confirmed by Oscar Thomas ([id number]) on 03/03/2019 11:40:20 PM Referred By: Sukumar Quezada Confirmed By:Oscar Thomas
--- NOTE | 2019-03-04 03:06 | Operative Report ---
DATE OF OPERATION: 03/03/2019 PREOPERATIVE DIAGNOSIS: Lymphadenopathy. POSTOPERATIVE DIAGNOSIS: Lymphadenopathy. PROCEDURE: Excisional biopsy of left axillary lymph node. SURGEON: Benito Amaral MD FINDINGS: The patient has multiple areas of lymphadenopathy. There was a palpable lymph node in the left axilla. It was excised. It proved to be 3 x 2.5 x 1.2 cm. There were other lymph nodes also palpable in the axilla. TECHNIQUE: The patient was given intravenous sedation and the area was prepped and draped in the usual sterile fashion. The lymph node could be palpated. The skin just inferior to that was anesthetized with 1% Xylocaine with epinephrine. The subcutaneous tissue was similarly anesthetized. Skin incision was made and was carried down through the generous subcutaneous tissue. I then worked deep towards the axilla and encountered the axillary fascia, which was opened, which then allowed me to easily palpate the lymph node. I was able to grasp some of the tissue adherent to it and elevate it towards the incision and then separate it from the surrounding tissues using the LigaSure device adhering to the capsule of the lymph node until it was completely and removed. The area was inspected for bleeding and none was seen. The deep tissues were approximated with interrupted 2-0 Vicryl. The deep subcutaneous tissue was closed with running 2-0 Vicryl. The superficial subcutaneous tissue was closed with running 3-0 Vicryl and the skin was closed with 4-0 Monocryl in a running subcuticular fashion. The skin was cleansed, dried, benzoin placed, Steri-Strips applied. The estimated blood loss was 3 mL. Sponge, needle and instrument counts were correct prior to closure. The patient tolerated the surgical procedure without complication and was transferred to recovery. I attest to the content of the Intraoperative Record and any orders documented therein. Any exception s are noted below.
[2019-03-04] MEDS: SODIUM CHLORIDE 0.9% 1000ML 1,000 ML IV SCH ×2 (05:36→18:29)
[2019-03-04 05:51] LABS: Basophils # (auto) 0.01 K/uL (0-0.2); Basophils % (auto) 0.1 %; Eosinophils # (auto) 0.17 K/uL (0-0.5); Eosinophils % (auto) 2.4 %; Hematocrit (blood only) 31.1 % (42-52); Hemoglobin 10.1 g/dL (14.0-18.0); Immature Granulocytes # (auto) 0.02 K/uL (0.00-0.02); Immature Granulocytes % (auto) 0.3 %; Lymphocytes # (auto) 0.68 K/uL (1.2-3.4); Lymphocytes % (auto) 9.6 %; Mean Corpuscular Hemoglobin 28.6 pg (25-34); Mean Corpuscular Hgb Conc 32.5 g/dL (32-36); Mean Corpuscular Volume 88.1 fL (80-100); Mean Platelet Volume 9.1 fL (7.4-10.4); Monocytes # (auto) 0.75 K/uL (0.11-0.59); Monocytes % (auto) 10.5 %; Neutrophils # (auto) 5.48 K/uL (1.4-6.5); Neutrophils % (auto) 77.1 %; Platelet Count 196 K/uL (130-400); RDW Coefficient of Variation 14.5 % (11.5-14.5); RDW Standard Deviation 46.6 fL (36.4-46.3); Red Blood Count 3.53 M/uL (4.7-6.1); White Blood Count 7.11 K/uL (4.8-10.8)
[2019-03-04] MEDS: LEVOTHYROXINE SODIUM 100 MCG TABLET PO SCH (06:04)
[2019-03-04] MEDS: cephALEXin 250 MG CAP PO SCH ×3 (06:04→21:52)
[2019-03-04 06:29] LABS: Albumin Level 2.1 gm/dl (3.4-5.0); Creatinine Clr Calc Pharmacy 30.2 ml/min; Est GFR (African American) 29.5; Est GFR (Non-African American) 25.5; Potassium 3.6 mmol/L (3.5-5.1)
[2019-03-04 06:32] LABS: Albumin Globulin Ratio 0.5 (0.9-2); Bilirubin,Total 0.4 mg/dl (0.2-1); Globulin 3.9 gm/dl (2.5-4.0)
--- NOTE | 2019-03-04 06:52 | Surgery Progress Note ---
Date of Service March 04, 2019 Subjective Postoperative day #1 status post excisional biopsy left axillary lymph node Feels well today Having mild to moderate pain pain is controlled Physical Exam Physical Exam: Dressing over left axillary incision is clean and dry There is no surrounding erythema Results & Data Vital Signs (Past 12 Hours) Vital Signs Temp Pulse Pulse Pulse Resp BP Pulse Ox 03/04/19 04:00 36.3 C L 78 20 137/67 96 03/04/19 01:07 71 03/03/19 22:57 36.5 C 68 18 125/60 99 03/03/19 21:00 36.9 C 81 16 114/65 96 03/03/19 20:30 36.3 C L 72 18 132/70 100 03/03/19 20:00 36.2 C L 72 18 131/63 97 03/03/19 19:45 36.7 C 64 18 123/68 99 03/03/19 19:10 37.0 C 66 20 128/60 99 03/03/19 19:00 61 13 124/58 L 98
[2019-03-04] MEDS: METOPROLOL SUCC 50MG EXT REL TAB PO SCH (08:09)
[2019-03-04] MEDS: HEPARIN SOD 5,000 UNIT/0.5 ML VIAL SQ SCH ×2 (08:09→21:52)
[2019-03-04] MEDS: INSULIN ASPART 100 UNITS/ML 3 ML PEN SC SCH ×4 (08:09→21:53)
--- NOTE | 2019-03-04 08:10 | Oncology Consultation ---
Date of Consultation March 03, 2019 Assessment & Plan (1) Lymphadenopathy: The appearance of Mr. Hankins's scans is most concerning for a lymphoproliferative disease. The next step should be obtaining a tissue diagnosis. Because we suspect a lymphoma, the best approach would be to excise an entire lymph node. He has large axillary nodes and a firm, easily palpable right supraclavicular node. Either of these should be easy to remove with only modest risk. Once we establish a diagnosis, we can complete his workup with a PET/CT. I reviewed some of the basics of management of lymphomas with Mr. Hankins and is , but I will reserve a herrera discussion until we confirm his diagnosis. Present on Admission?: Yes History of Present Illness Reason for Consultation: Lymphadenopathy Attending Physician: Rivera Smith History of Present Illness Mr. Hankins is a78 year old man with a history of MR, type 2 DM, CAD with a stent years ago, GERD, HTN, and hypothyroidism. He saw his PCP on 02/28 complaining of some increased swelling in his left leg, along with some supra pubic/groin pain. He had a venous doppler that revealed no VTE but did reveal a left inguinal lymph node measuring 4.1 x 1.2 x 2.5 cm. He alos had lab work that revealed a calcium over 12 and a creatinine over 3. He was sent to the ER for these issues. CT CAP 03/01 revealed evidence of widespread lymphadenopathy, most notably in the right anterior upper mediastinum, where a soft tissue lesion extended through the chest wall. He denies any fevers, night sweats, or fatigue. He's maybe lost a few pounds, but has not noticed any weight loss. He denies any bleeding, bruising, infectious symptoms, chest pain, cough, SOB, or other pain aside from his suprapubic symptoms. Allergies Allergy/AdvReac Type Severity Reaction Status Date / Time No Known Allergies Allergy Verified 03/01/19 18:21 Home Medications Home Medications Medication Instructions Recorded Confirmed Type atorvastatin 80 mg tablet 80 mg PO HS #90 tab 10/08/18 03/01/19 Rx acetaminophen 500 mg tablet 1,000 mg PO TID PRN #90 tab 11/29/18 03/01/19 History amoxicillin 500 mg capsule See Rx Instructions .ROUTE 11/29/18 03/01/19 History .COMPLEX cap blood sugar diagnostic #10 ea 10/07/19 01/06/20 History fluticasone propionate 50 1 sprays INTRANASAL DAILY PRN #3 gm 11/29/18 03/01/19 History mcg/actuation nasal spray,suspension lancets #50 ea 11/29/18 02/28/19 History metoprolol succinate 50 mg 50 mg PO QAM #90 tab 11/29/18 03/01/19 History tablet,extended release 24 hr sitagliptin 50 mg-metformin 1,000 1 tab PO BID #180 tab 02/04/19 03/01/19 Rx mg tablet aspirin 81 mg PO QPM 03/01/19 03/01/19 History levothyroxine 100 mcg PO QAM 03/01/19 03/01/19 History lisinopril 10 mg PO QPM 03/01/19 03/01/19 History Patient History Medical History Arteriosclerotic coronary artery disease Bleeding external hemorrhoids (Inactive) Chronic osteoarthritis Dyslipidemia Gastroesophageal reflux disease Hypertension Hypothyroidism Severe sleep apnea T2DM (type 2 diabetes mellitus) Surgical History History of total knee arthroplasty R knee. S/P coronary artery stent placement (02/2009) WALKER to RCA Feb 2009. Family History Father , age 70 Stroke Myocardial infarction Coronary heart disease Social History Preferred Language: Greek Communication Ability: Effective Visual Impairment: No Limitations Hearing Ability: Use of Hearing Aid Greeting Card Writer Required: No Beliefs That Will Affect Care: None marital status: Current Living Situation: Spouse current occupational status: retired Feels Safe at Home: Yes Smoking Status: Never smoker Second Hand Exposure: No ; Hx Alcohol Use: No Hx Substance Use: No caffeine: Yes Dental Care, Regularly: Yes Physical Activity Frequency: 3-4 Times per Week Seatbelt Use: always Sunscreen Use: Yes Review of Systems Review of Systems: All systems reviewed & are unremarkable except as noted in HPI & below Physical Exam Constitutional: healthy appearing and comfortable; no acute distress ENMT: external ear and nose normal, oropharynx normal Respiratory: normal respiratory effort, lungs clear to auscultation Cardiovascular: RRR, no murmur, no edema Gastrointestinal (Abdomen): Inspection/Auscultation: normal bowel sounds; abdomen not distended Percussion/Palpation: abdomen soft; abdomen nontender Skin: no rashes, warm and dry Psychiatric: A+Ox3, euthymic affect Lymphatic: + cervical lymphadenopathy and + subclavicular lymphadenopathy (Firm, ~2 cm lymph node in the right supraclavicular fossa) Results & Data Vital Signs (Past 12 Hours) Vital Signs Temp Pulse Pulse Resp BP Pulse Ox 03/04/19 07:39 37.0 C 74 18 156/68 H 96 03/04/19 04:00 36.3 C L 78 20 137/67 96 03/04/19 01:07 71 03/03/19 22:57 36.5 C 68 18 125/60 99 03/03/19 21:00 36.9 C 81 16 114/65 96 03/03/19 20:30 36.3 C L 72 18 132/70 100 Laboratory Results Laboratory Tests 03/03/19 03/03/19 05:31 05:31 WBC 6.75 Hgb 10.1 L Plt Count 209 Lymph # (Auto) 0.90 L Creatinine 3.05 H Calcium 10.[address] CAP from 03/02/19: Chest IMPRESSION: 1. Multifocal infiltrative soft tissue/lymphadenopathy, including right anterior upper mediastinal soft tissue which extends through the chest wall. Retrocrural/para-aortic infiltrative soft tissue/lymphadenopathy. Multiple mildly enlarged bilateral axillary, right retropectoral, mediastinal and right hilar lymph nodes. Overall, the findings strongly suggest lymphoma. 2. Trace bilateral pleural effusions. 3. Moderate cardiomegaly. Extensive coronary artery calcification. 4. Heterogeneity of the thoracic spine, most notably T7. This is nonspecific but may reflect lymphomatous involvement. A/P IMPRESSION: 1. Extensive retroperitoneal lymphadenopathy extending from the right retrocrural region superiorly to the bilateral external iliac regions inferiorly. A notable lymph node in the right external iliac region would be amenable to percutaneous biopsy, potentially ultrasound-guided. Differential considerations favor lymphoproliferative disease/lymphoma or less likely a urothelial or prostatic etiology given the presence of moderate left hydroureteronephrosis. 2. No convincing evidence of osseous metastatic disease on the current exam. Osseous involvement may be better assessed with PET CT or bone scan versus random bone marrow biopsy in the setting of lymphoma. 3. 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
--- NOTE | 2019-03-04 10:00 | Pharmacy Report ---
Pharmacy Glycemic Short Note 2 - Date of Service March 04, 2019 - Glycemic Short BSG Results (Last 24 hours): 03/03/19 03/03/19 03/03/19 10:35 12:23 19:07 Glucose POC Glucose 104 H 97 77 03/03/19 03/03/19 03/04/19 19:32 20:28 05:38 Glucose 94 POC Glucose 76 88 03/04/19 07:51 Glucose POC Glucose 104 H OUTPATIENT ANTIDIABETIC REGIMEN: * Janumet 50/1000mg - 1 tablet PO BID ASSESSMENT: * Lymphadenopathy, suspecting lymphoma, resection and biopsy of lymph node per Dr Wolff for diagnosis. * Patient received 0 units of insulin yesterday, euglycemic, will remove CR at this time, as it does not seem to be needed and to prevent hypoglycemia. * Will add CR back if blood sugars elevate with PO intake PLAN FOR INPATIENT GLYCEMIC CONTROL: * Hold outpatient oral diabetes medications * Bolus insulin * NovoLog per scale ACHS or Q6hrs while NPO * Goal Range: Low 110 mg/dL - High 140 mg/dL * Correction Factor: 30 mg/dL/unit * DISCONTINUE: Nutritional / Prandial insulin PLAN FOR DISCHARGE: * pending, currently Janumet is inappropriate for renal function
--- NOTE | 2019-03-04 10:24 | Nephrology Progress Note ---
Date of Service March 04, 2019 Assessment & Plan (1) SHAVONNE (acute kidney injury): 68-year-old gentlemen admitted with acute kidney injury and hypercalcemia. Baseline had decent renal function. History of recent loss of weight and loss of appetite. No personal history of malignancy. Has not been on hydrochlorothiazide or high dose of calcium or vitamin-D supplement. Recent PSA was normal. CT C/A/P on 03/02/18 showed left [place] and possible Lymphoma. Had b/l ureteral stent and axillary LN biopsy on 03/03/19. SHAVONNE in the setting of left-sided hydronephrosis and hypercalcemia with possible new diagnosis of lymphoma. Clinically stable, blood pressure well controlled and has been having decent urine output. Volume status acceptable. Cr improving after B/L ureteral stent on 03/03/19 --continue on IV normal saline for now, calcium seem to be improving with hydration only --okay to continue on lisinopril, avoid nephrotoxic medications including NSAIDs. --dose medications for GFR less than 30 --left arm nephrology precaution Will follow (2) Hypercalcemia: (3) Hypertension: (4) Dyslipidemia: (5) Arteriosclerotic coronary artery disease: (6) T2DM (type 2 diabetes mellitus): Cuauhtemoc Ruby was seen and examined in his room this am, Fely was at Bedside. Overall doing well, denies any symptoms. Renal function improving, BP , volume status, acceptable, Ca better. Review of Systems Review of Systems: All systems reviewed & are unremarkable except as noted in HPI & below Physical Exam Constitutional: well developed and well nourished; no acute distress Respiratory: normal respiratory effort, lungs clear to auscultation Cardiovascular: RRR, no murmur, no edema Neurologic: moves all extremities and awake; not confused Psychiatric: A+Ox3, euthymic affect Results & Data Vital Signs (Past 12 Hours) Vital Signs Temp Pulse Pulse Resp BP Pulse Ox 03/04/19 08:00 66 03/04/19 07:39 37.0 C 74 18 156/68 H 96 03/04/19 04:00 36.3 C L 78 20 137/67 96 03/04/19 01:07 71 03/03/19 22:57 36.5 C 68 18 125/60 99 PG Care Time/CCT Total # of Minutes Spent Total Time Spent with Patient: Total time spent is greater than 50% in coordination of care (as documented) at patient's floor/unit and/or counseling patient: (1) Hypertension Hypertension type: essential hypertension Qualified Code(s): I10 - Essential (primary) hypertension (2) T2DM (type 2 diabetes mellitus) Diabetes mellitus alf insulin use: without terminal system operator use Diabetes mellitus complication status: without complication Qualified Code(s): E11.9 - Type 2 diabetes mellitus without complications
--- NOTE | 2019-03-04 12:03 | Urology Progress Note ---
Date of Service March 04, 2019 Assessment & Plan (1) Hydronephrosis, left: (2) SHAVONNE (acute kidney injury): 78 yo M POD #1 s/p bilateral stent placement in the setting of SHAVONNE secondary to left hydronephrosis and lymphadenopathy. Creatinine improving s/p B/L stent placement. Maintain Ramirez at present Will continue to monitor while inpatient. Subjective 78 yo M POD #1 s/p bilateral stent placement in the setting of SHAVONNE secondary to left hydronephrosis and lymphadenopathy. Awake, sitting up in bedside chair. , Fely, at bedside. No issues overnight. Tolerating bilateral stents without bother. Ramirez catheter draining light red urine. No urgency or dysuria. Creatinine improved to 2.37 today. Review of Systems Review of Systems: All systems reviewed & are unremarkable except as noted in HPI & below Physical Exam Physical Exam: Obese, NAD AOx3 Normal respiratory effort Abd soft, nontender, nondistended Ramirez intact, draining light red urine Trace pedal edema Results & Data Vital Signs (Past 12 Hours) Vital Signs Temp Pulse Pulse Resp BP Pulse Ox 03/04/19 11:18 37.1 C 72 18 148/69 H 97 03/04/19 08:00 66 03/04/19 07:39 37.0 C 74 18 156/68 H 96 03/04/19 04:00 36.3 C L 78 20 137/67 96 03/04/19 01:07 71 PG Care Time/CCT Total # of Minutes Spent Total Time Spent with Patient: Total time spent is greater than 50% in coordination of care (as documented) at patient's floor/unit and/or counseling patient:
--- NOTE | 2019-03-04 16:38 | Hospitalist Progress Note ---
Date of Service March 04, 2019 Assessment & Plan (1) Lymphadenopathy: Constellation of extensive lymphadenopathy on physical exam and on blackman-CT, hypercalcemia, etc all highly concerning for lymphoma. POD #1 - s/p left-sided excisional axillary lymph node bx for diagnosis. Results pending. Heme/onc highly concerned this is lymphoma. Multiple CBCs have been stable. Pathology likely won't be back until Thursday. Potentially could go home over weekend if creatinine is stable and calcium is stable. Then would need heme/onc f/u post-discharge carmel to formulate a treatment plan. (2) Hydronephrosis, left: And to a lesser extent on right. Likely due to bulky lymphadenopathy causing compression. POD #1 - s/p b/l ureteral stent placement. Creatinine improved nicely to 2.3 today suggesting there was indeed a significant component of obstruction that was relieved by stent placement. Appreciate urology assistance. (3) Cellulitis: L LE cellulitis - by report. Again no erythema on exam today. Complete 3 more days of Rx then stop. Currently on keflex. Edema is overall improved in the LLE. Recent doppler was neg for DVT. (4) SHAVONNE (acute kidney injury): Intrinsic injury (hypercalcemia) and likely obstructive (hydronephrosis from bulky lymphadenopathy). Improved today likely due in large part to b/l ureteral stent placement. Repeat BMP in am. cont IVF. appreciate nephrology assistance. hold TAVON inhibitor. (5) Hypercalcemia: Likely 2nd to suspected lymphoma process. Improving s/p fluids since admission. nephrology following. heme/onc consulted for suspected lymphoma. Repeat BMP am. Recent PTH, etc were normal/negative. (6) T2DM (type 2 diabetes mellitus): cont to hold oral agents novolog ac/hs glycemic management per pharmacy - appreciate their assistance control adequate (7) Severe sleep apnea: CPAP HS (8) Hypothyroidism: Continue home dose of levothyroxine. TSH wnl this admission. (9) Hypertension: HOLD TAVON due to Acute kidney injury. Cont beta evonne. BPs acceptable. (10) Dyslipidemia: cont statin (11) Arteriosclerotic coronary artery disease: cont statin, asa, beta evonne no ischemic symptoms (12) Hematuria: 2nd to recent cystoscopy with b/l ureteral stent placement. urine gradually clearing. H/H stable. think benefits of asa and heparin SC outweigh risks. middleton management per urology. likely will go home with such. (13) DVT prophylaxis: heparin 5000 units every 12 hours see above in "hematuria" extensively updated at bedside questions answered seen by PT - cleared for home care discussed at multidisciplinary rounds today anticipated d/c - Thursday? depends on Cr and ca levels will need to surgery post-d/c 1-2 weeks Subjective patient without significant complaints. he and his are still stunned by the news that he may have lymphoma. his appetite remains good. he is ambulating. denies fevers/chills/sweats. middleton draining collins-colored urine. tele normal overnight. Review of Systems Constitutional: no fever, no chills and no anorexia Respiratory: no cough, no dyspnea and no dyspnea on exertion Cardiovascular: no chest pain Gastrointestinal: no abdominal pain, no nausea and no vomiting Physical Exam Constitutional: no acute distress and no altered mental status ENMT: external ear and nose normal, oropharynx normal Respiratory: normal respiratory effort, lungs clear to auscultation Cardiovascular: Rate/Rhythm: regular rate and regular rhythm Heart Sounds: normal S1, normal S2 and + murmur (2/6 RUSB systolic ) Vessels: posterior tibial pulses present and dorsalis pedis pulses present; no JVD Extremities: + edema (1+ distal left leg) Gastrointestinal (Abdomen): normal bowel sounds, soft, nontender, no hepatosplenomegaly Psychiatric: Orientation: alert and oriented x 3 Affect: + flat affect Results & Data Vital Signs (Past 12 Hours) Vital Signs Temp Pulse Pulse Resp BP Pulse Ox 03/04/19 16:09 72 03/04/19 15:14 37.6 C H 74 18 151/75 H 97 03/04/19 11:18 37.1 C 72 18 148/69 H 97 03/04/19 08:00 66 03/04/19 07:39 37.0 C 74 18 156/68 H 96 Laboratory Results Laboratory Results - last 24 hr 03/03/19 03/03/19 03/03/19 19:07 19:32 20:28 WBC RBC Hgb Hct MCV MCH MCHC RDW Std Deviation RDW Coeff of Enrike Plt Count MPV Immature Gran % (Auto) Neut % (Auto) Lymph % (Auto) Bailey % (Auto) Eos % (Auto) Baso % (Auto) Immature Gran # (Auto) Neut # (Auto) Lymph # (Auto) Bailey # (Auto) Eos # (Auto) Baso # (Auto) Sodium Potassium Chloride Carbon Dioxide Anion Gap BUN Creatinine Est Cr Clr Drug Dosing Est GFR ( Amer) Est GFR (Non-Af Amer) BUN/Creatinine Ratio Glucose POC Glucose 77 76 88 Calcium Total Bilirubin AST ALT Alkaline Phosphatase Total Protein Albumin Globulin Albumin/Globulin Ratio 03/04/19 03/04/19 03/04/19 05:38 05:38 07:51 WBC 7.11 RBC 3.53 L Hgb 10.1 L Hct 31.1 L MCV 88.1 MCH 28.6 MCHC 32.5 RDW Std Deviation 46.6 H RDW Coeff of Enrike 14.5 Plt Count 196 MPV 9.1 Immature Gran % (Auto) 0.3 Neut % (Auto) 77.1 Lymph % (Auto) 9.6 Bailey % (Auto) 10.5 Eos % (Auto) 2.4 Baso % (Auto) 0.1 Immature Gran # (Auto) 0.02 Neut # (Auto) 5.48 Lymph # (Auto) 0.68 L Bailey # (Auto) 0.75 H Eos # (Auto) 0.17 Baso # (Auto) 0.01 Sodium 139 Potassium 3.6 Chloride 109 H Carbon Dioxide 24 Anion Gap 6.0 BUN 28 H Creatinine 2.37 H D Est Cr Clr Drug Dosing 30.2 Est GFR ( Amer) 29.5 Est GFR (Non-Af Amer) 25.5 BUN/Creatinine Ratio 12.0 Glucose 94 POC Glucose 104 H Calcium 10.0 Total Bilirubin 0.4 AST 25 ALT 28 Alkaline Phosphatase 118 H Total Protein 6.0 L Albumin 2.1 L Globulin 3.9 Albumin/Globulin Ratio 0.5 L 03/04/19 11:35 WBC RBC Hgb Hct MCV MCH MCHC RDW Std Deviation RDW Coeff of Enrike Plt Count MPV Immature Gran % (Auto) Neut % (Auto) Lymph % (Auto) Bailey % (Auto) Eos % (Auto) Baso % (Auto) Immature Gran # (Auto) Neut # (Auto) Lymph # (Auto) Bailey # (Auto) Eos # (Auto) Baso # (Auto) Sodium Potassium Chloride Carbon Dioxide Anion Gap BUN Creatinine Est Cr Clr Drug Dosing Est GFR ( Amer) Est GFR (Non-Af Amer) BUN/Creatinine Ratio Glucose POC Glucose 206 H Calcium Total Bilirubin AST ALT Alkaline Phosphatase Total Protein Albumin Globulin Albumin/Globulin Ratio PG Care Time/CCT Total # of Minutes Spent Total Time Spent with Patient: Total time spent is greater than 50% in coordination of care (as documented) at patient's floor/unit and/or counseling patient: (1) Cellulitis Site of cellulitis: extremity Site of cellulitis of extremity: lower extremity Laterality: left Qualified Code(s): L03.116 - Cellulitis of left lower limb (2) T2DM (type 2 diabetes mellitus) Diabetes mellitus cashier general insulin use: without assisted use Diabetes mellitus complication status: without complication Qualified Code(s): E11.9 - Type 2 diabetes mellitus without complications (3) Hypothyroidism Hypothyroidism type: acquired Qualified Code(s): E03.9 - Hypothyroidism, unspecified (4) Hypertension Hypertension type: essential hypertension Qualified Code(s): I10 - Essential (primary) hypertension (5) Hematuria Hematuria type: gross Qualified Code(s): R31.0 - Gross hematuria
[2019-03-04] MEDS: ATORVASTATIN 40 MG TAB PO SCH (21:51)
[2019-03-04] MEDS: ASPIRIN 81 MG ECTAB PO SCH (21:52)
[2019-03-05] MEDS: SODIUM CHLORIDE 0.9% 1000ML 1,000 ML IV SCH ×2 (01:44→12:04)
[2019-03-05] MEDS: cephALEXin 250 MG CAP PO SCH ×2 (05:55→14:47)
[2019-03-05] MEDS: LEVOTHYROXINE SODIUM 100 MCG TABLET PO SCH (05:55)
[2019-03-05 06:26] LABS: Hematocrit (blood only) 30.6 % (42-52); Mean Corpuscular Hemoglobin 28.5 pg (25-34); Mean Corpuscular Hgb Conc 32.7 g/dL (32-36); Mean Corpuscular Volume 87.2 fL (80-100); Platelet Count 205 K/uL (130-400); RDW Coefficient of Variation 14.4 % (11.5-14.5); RDW Standard Deviation 45.7 fL (36.4-46.3); Red Blood Count 3.51 M/uL (4.7-6.1); White Blood Count 7.53 K/uL (4.8-10.8)
[2019-03-05 07:07] LABS: Albumin Level 2.1 gm/dl (3.4-5.0); BUN Creatinine Ratio 11.1 (10-20); Calcium 9.6 mg/dl (8.5-10.1); Creatinine Clr Calc Pharmacy 35.6 ml/min; Est GFR (Non-African American) 31.1; Phosphorus 2.6 mg/dl (2.5-4.9); Potassium 3.4 mmol/L (3.5-5.1)
[2019-03-05] MEDS: METOPROLOL SUCC 50MG EXT REL TAB PO SCH (08:37)
[2019-03-05] MEDS: HEPARIN SOD 5,000 UNIT/0.5 ML VIAL SQ SCH ×2 (08:37→22:03)
[2019-03-05] MEDS: INSULIN ASPART 100 UNITS/ML 3 ML PEN SC SCH ×4 (08:38→22:07)
--- NOTE | 2019-03-05 14:35 | Nephrology Progress Note ---
Date of Service March 05, 2019 Assessment & Plan (1) SHAVONNE (acute kidney injury): Flori is a 78-year-old gentlemen admitted with acute kidney injury and hypercalcemia. Baseline creatinine normal. Non-oliguric. SHAVONNE improving s/p BL ureteral stent placement with positive fluid balance and management of hypercalcemia. BP elevated and evidence of hypervolemic. IVF will be stopped. Continue to document I/O's. Repeat metabolic profile tomorrow AM. BP and volume status are acceptable. Medications appropriately dosed for kidney function. (2) Hypercalcemia: Non-PTH mediated. PTHrp pending. Suspect this is secondary to lymphoma. Improving with hydration. Prospective monitoring will be provided. (3) Hypertension: BP elevated but acceptable. TAVON held for now. (4) Dyslipidemia: (5) Arteriosclerotic coronary artery disease: (6) T2DM (type 2 diabetes mellitus): Subjective No acute events overnight. LE edema increasing. Appetite good. No dyspnea. No pain. No fevers or chills. Flori was seen and evaluated with his at the bedside today. Review of Systems Review of Systems: All systems reviewed & are unremarkable except as noted in HPI & below Physical Exam Constitutional: well developed; no acute distress, not frail appearing and not edematous Eyes: + anicteric sclerae; no corneal abnormality ENMT: Mouth: no oral mucosal abnormality and oral mucous membranes not dry Neck: normal visual inspection, trachea midline and + thick neck Respiratory: normal respiratory effort Auscultation: lungs clear to auscultation bilaterally Cardiovascular: Rate/Rhythm: regular rate Heart Sounds: normal S1 and normal S2 Vessels: no JVD Extremities: + edema Gastrointestinal (Abdomen): Inspection/Auscultation: + abdomen distended Percussion/Palpation: abdomen soft; abdomen nontender Musculoskeletal: Extremities: no cyanosis and no clubbing Skin: normal turgor; no lesions Neurologic: Motor/Sensory: no tremor and no asterixis Psychiatric: Orientation: alert and oriented x 3 Results & Data Laboratory Results Laboratory Results - last 24 hr 03/04/19 03/04/19 03/05/19 16:37 20:26 06:08 WBC RBC Hgb Hct MCV MCH MCHC RDW Std Deviation RDW Coeff of Enrike Plt Count MPV Sodium 139 Potassium 3.4 L Chloride 109 H Carbon Dioxide 24 Anion Gap 6.0 BUN 22 H Creatinine 2.01 H D Est Cr Clr Drug Dosing 35.6 Est GFR ( Amer) 36.0 Est GFR (Non-Af Amer) 31.1 BUN/Creatinine Ratio 11.1 Glucose 102 H POC Glucose 130 H 153 H Calcium 9.6 Phosphorus 2.6 Albumin 2.1 L 03/05/19 03/05/19 03/05/19 06:14 07:45 11:40 WBC 7.53 RBC 3.51 L Hgb 10.0 L Hct 30.6 L MCV 87.2 MCH 28.5 MCHC 32.7 RDW Std Deviation 45.7 RDW Coeff of Enrike 14.4 Plt Count 205 MPV 9.0 Sodium Potassium Chloride Carbon Dioxide Anion Gap BUN Creatinine Est Cr Clr Drug Dosing Est GFR ( Amer) Est GFR (Non-Af Amer) BUN/Creatinine Ratio Glucose POC Glucose 113 H 137 H Calcium Phosphorus Albumin PG Care Time/CCT Total # of Minutes Spent Total Time Spent with Patient: Total time spent is greater than 50% in coordination of care (as documented) at patient's floor/unit and/or counseling patient: (1) Hypertension Hypertension type: essential hypertension Qualified Code(s): I10 - Essential (primary) hypertension (2) T2DM (type 2 diabetes mellitus) Diabetes mellitus senior care insulin use: without senior care use Diabetes mellitus complication status: without complication Qualified Code(s): E11.9 - Type 2 diabetes mellitus without complications
[2019-03-05] MEDS: ATORVASTATIN 40 MG TAB PO SCH (22:02)
[2019-03-05] MEDS: ASPIRIN 81 MG ECTAB PO SCH (22:03)
[2019-03-05] MEDS: cephALEXin 500 MG CAP PO SCH (22:21)
[2019-03-06] MEDS: LEVOTHYROXINE SODIUM 100 MCG TABLET PO SCH (06:04)
[2019-03-06 06:53] LABS: BUN Creatinine Ratio 11.5 (10-20); Calcium 9.4 mg/dl (8.5-10.1); Creatinine Clr Calc Pharmacy 39.1 ml/min; Est GFR (African American) 40.3; Est GFR (Non-African American) 34.8; Phosphorus 2.8 mg/dl (2.5-4.9); Potassium 3.5 mmol/L (3.5-5.1)
[2019-03-06] MEDS: cephALEXin 500 MG CAP PO SCH (08:40)
[2019-03-06] MEDS: HEPARIN SOD 5,000 UNIT/0.5 ML VIAL SQ SCH (08:41)
[2019-03-06] MEDS: INSULIN ASPART 100 UNITS/ML 3 ML PEN SC SCH (08:41)
[2019-03-06] MEDS: METOPROLOL SUCC 50MG EXT REL TAB PO SCH (08:41)
--- NOTE | 2019-03-06 11:00 | Nephrology Progress Note ---
Date of Service March 06, 2019 Assessment & Plan (1) SHAVONNE (acute kidney injury): Flori is a 78-year-old gentlemen admitted with acute kidney injury and hypercalcemia. Baseline creatinine normal. Non-oliguric. SHAVONNE improving s/p BL ureteral stent placement with positive fluid balance and management of hypercalcemia. BP elevated and evidence of hypervolemic. BP and volume status are acceptable. Medications appropriately dosed for kidney function. Repeat metabolic profile early next week. Follow up with Dr. Caraballo in the nephrology clinic within 2 weeks of discharge. (2) Hypercalcemia: Non-PTH mediated. PTHrp pending. Suspect this is secondary to lymphoma. Improving with hydration. Prospective monitoring will be provided. (3) Hypertension: BP elevated but acceptable. TAVON held for now. (4) Dyslipidemia: (5) Arteriosclerotic coronary artery disease: (6) T2DM (type 2 diabetes mellitus): Reasonable to restart home medications with monitoring of kidney function. Subjective No acute events overnight. Plan to go home today. I discussed the plan of care with Dr. branch this AM. LE edema slightly improved. Appetite good. No dyspnea. No pain. No fevers or chills. Flori was seen and evaluated with his at the bedside today. Review of Systems Review of Systems: All systems reviewed & are unremarkable except as noted in HPI & below Physical Exam Constitutional: well developed; no acute distress, not frail appearing and not edematous Eyes: + anicteric sclerae; no corneal abnormality ENMT: Mouth: no oral mucosal abnormality and oral mucous membranes not dry Neck: normal visual inspection, trachea midline and + thick neck Respiratory: normal respiratory effort Auscultation: lungs clear to auscultation bilaterally Cardiovascular: Rate/Rhythm: regular rate Heart Sounds: normal S1 and normal S2 Vessels: no JVD Extremities: + edema Gastrointestinal (Abdomen): Inspection/Auscultation: + abdomen distended Percussion/Palpation: abdomen soft; abdomen nontender Musculoskeletal: Extremities: no cyanosis and no clubbing Skin: normal turgor; no lesions Neurologic: Motor/Sensory: no tremor and no asterixis Psychiatric: Orientation: alert and oriented x 3 Results & Data Vital Signs (Past 12 Hours) Vital Signs Temp Pulse Pulse Resp BP Pulse Ox 03/06/19 10:38 36.5 C 66 79 16 159/76 H 96 03/06/19 08:21 36.5 C 79 16 159/76 H 96 03/05/19 23:05 37.3 C 75 18 157/78 H 94 Laboratory Results Laboratory Results - last 24 hr 03/05/19 03/05/19 03/05/19 11:40 16:13 20:16 Sodium Potassium Chloride Carbon Dioxide Anion Gap BUN Creatinine Est Cr Clr Drug Dosing Est GFR ( Amer) Est GFR (Non-Af Amer) BUN/Creatinine Ratio Glucose POC Glucose 137 H 136 H 165 H Calcium Phosphorus Albumin 03/06/19 03/06/19 05:55 08:13 Sodium 138 Potassium 3.5 Chloride 108 H Carbon Dioxide 25 Anion Gap 6.0 BUN 21 H Creatinine 1.83 H Est Cr Clr Drug Dosing 39.1 Est GFR ( Amer) 40.3 Est GFR (Non-Af Amer) 34.8 BUN/Creatinine Ratio 11.5 Glucose 111 H POC Glucose 116 H Calcium 9.4 Phosphorus 2.8 Albumin 2.0 L PG Care Time/CCT Total # of Minutes Spent Total Time Spent with Patient: Total time spent is greater than 50% in coordination of care (as documented) at patient's floor/unit and/or counseling patient: (1) Hypertension Hypertension type: essential hypertension Qualified Code(s): I10 - Essential (primary) hypertension (2) T2DM (type 2 diabetes mellitus) Diabetes mellitus jail insulin use: without jail use Diabetes mellitus complication status: without complication Qualified Code(s): E11.9 - Type 2 diabetes mellitus without complications
--- NOTE | 2019-03-06 16:09 | Discharge Summary ---
Date of Service March 06, 2019 Admission HPI Per Admitting Provider Patient is a 78 years old male with past medical history of coronary artery disease, dyslipidemia, GERD, hypothyroidism, diabetes mellitus type 2, hypertension, severe sleep apnea, who was sent by his PCP for acute kidney injury to the emergency room to be evaluated. Patient states that he noticed swelling of his left lower extremity for several days and he was given Keflex by his PCP. Patient reports that swelling of the left lower extremity improved and that he also had study done to rule out DVT and study was negative for DVT. This occurred on February 28, 2019. Patient denies fever, chills, chest pain, s hortness of breath, abdominal pain, frequency, urgency. Labs are reviewed: CBC 9.4, hemoglobin 11.5, hematocrit 35, platelets 273, sodium 136, potassium 4, chloride 100, BUN 39, creatinine 3.15. Patient's baseline creatinine is 1.24. GFR is 18.1 and baseline GFR is 55.7. Calcium 12.4 and corrected calcium is 13.28. Venous Doppler of the lower extremities: No evidence of deep venous thrombosis. Prominent through benign-appearing left inguinal lymph nodes may be reactive. Decision was made to admit patient for left lower extremity cellulitis, hypercalcemia and acute kidney injury to [facility] on telemetry. Principal Diagnosis SHAVONNE and hypercalcemia likely from lymphoma Discharge Exam Constitutional WD/WN, vitals as above Eyes EOM intact bilaterally; no conjunctival abnormality ENMT external ear and nose normal, oropharynx normal Neck trachea midline, no thyromegaly normal visual inspection Respiratory normal respiratory effort, lungs clear to auscultation no respiratory distress Cardiovascular RRR, no murmur, no edema Gastrointestinal (Abdomen) Inspection/Auscultation: abdomen normal to inspection; abdomen not distended Musculoskeletal no cyanosis or clubbing, extremities motor strength 5/5 Skin no rashes, warm and dry Neurologic moves all extremities and awake Psychiatric Orientation: alert, oriented to person and cooperative Discharge Data Allergies Allergy/AdvReac Type Severity Reaction Status Date / Time No Known Allergies Allergy Verified 03/01/19 18:21 Consultations 03/01/19 17:47 ED Decision to Admit Stat 03/01/19 21:44 Consult Nephrology Routine 03/02/19 12:42 Consult Oncology Routine Consult Urology Routine 03/03/19 14:07 Consult General Surgery Routine 03/03/19 21:04 Consult Hematology Routine Procedures Performed Operation Date: 03/03/19 07:30 Actual Procedures p Optical Ureterotomy; Cystoscopy, Left Retrograde pyelography; Stent Placement(Bilateral) - Mehul Hussein MD Operation Date: 03/03/19 12:25 Actual Procedures p Excision Left Axillary Lymph Node Biopsy(Left) - Benito Amaral MD Ordered Studies 03/02/19 10:23 CT abd pelvis wo con Routine CT chest wo con Routine 03/03/19 11:15 FL retrograde includes kub Routine Hospital Course (1) Lymphadenopathy: Constellation of extensive lymphadenopathy on physical exam and on blackman-CT, hypercalcemia, etc all highly concerning for lymphoma. - S/p left-sided excisional axillary lymph node bx for diagnosis. - Follow up heme/onc this week. (2) Hydronephrosis, left: And to a lesser extent on right. Due to bulky lymphadenopathy causing compression. - S/p b/l ureteral stent placement. - Cr improved to 1.8 by discharge. Follow up with Dr. Caraballo & Dr. Mehul Hussein. (3) Cellulitis: L LE cellulitis - by report. - No erythema on exam today. Finished abx by discharge. Recent doppler was neg for DVT. (4) SHAVONNE (acute kidney injury): Intrinsic injury (hypercalcemia) and likely obstructive (hydronephrosis from bulky lymphadenopathy). - Improved Cr as above. Follow up outpatient. - Restarted TAVON inhibitor on discharge as his BP was gradually rising. Potassium had been low-normal, so I think hyperkalemia is unlikely. Despite his likely now CKD, ACEi is renal-protective. (5) Hypercalcemia: Likely 2nd to suspected lymphoma process. - Encouraged good hydration. (6) T2DM (type 2 diabetes mellitus): Held oral agents while inpatient. Restarted on discharge. (7) Severe sleep apnea: CPAP HS (8) Hypothyroidism: Continue home dose of levothyroxine. TSH wnl this admission. (9) Hypertension: Cont beta evonne. Restart ACEi. BPs acceptable. (10) Dyslipidemia: cont statin (11) Arteriosclerotic coronary artery disease: cont statin, asa, beta evonne no ischemic symptoms (12) Hematuria: 2nd to recent cystoscopy with b/l ureteral stent placement. urine gradually clearing. Ramirez x 2 weeks, then remove per urology note. Total Time Total Time Spent Total Time Spent (In Minutes): 45 Discharge Plan Discharge Items Patient Disposition: Home - Self-Care Reason For Visit: ACUTE KIDNEY INJURY,LLE CELLULITIS Discharge Diagnosis: Possibly lymphoma causing kidney injury Activity: Resume your previous activity Non-emergency contact: Primary Care Provider and Oncologist Call non-emergency contact if: your symptoms worsen, your pain is not controlled, your pain is worsening and your temperature is above 101 Follow-up/Referrals: Mehul Hussein MD [Physician] - (Please call Dr. Hussein's office for urology follow up.) Judith Rodriguez DO [Primary Care Provider] - (Please see Dr. Rodriguez in the office this week.) Padmaja Caraballo MD [Physician] - (Please see the kidney doctor in the office in the next 1-2 weeks.) Beltran Wolff [Physician] - (Please call Dr. Wolff office on Thursday for an appointment.) Diet: Carb Consistent or DM2 Addtl Attending Provider Instructions: You were admitted to the hospital for kidney injury related to a likely lymphoma. You got stenting and a Ramirez catheter to help prevent the lymphoma from pressing on the ureters and causing more blockages. You will need to see Dr. Hussein (urology) in the office this week for follow up. You will need to see Dr. Amaral (surgery) in the office in 2 weeks to check on the biopsy site. You will need to see Dr. Rodriguez and Dr. Wolff in the office this coming week to get the results of your biopsy and talk about next steps in your care. Dr. Rodriguez or Dr. Wolff will check your kidney function and electrolytes. For your kidneys, please stay hydrated. You can probably drink 2-3 cups of coffee per day, but also try to match that with water. Your goal should be 6-8 cups of water per day with light-yellow urine. Addtl Pe Teacher Provider Instructions: Surgical discharge instructions: - no heavy lifting with left arm over 10 pounds for 2 weeks - no repetitive movements with left arm above head for 1 week - you may shower, allow water to run over incision and pat dry - no submerging incision underwater for 2 weeks (no bathing, swimming or hot tubs) - You may take extra strength Tylenol as needed for mild pain - Follow-up in surgical office in 2 weeks, please call office at [phone] to make an appointment. Pending Studies at Discharge: No Stand-Alone Forms: My [facility], Smoking Cessation Medications and DC Order Prescriptions: Continued atorvastatin 80 mg tablet 80 mg PO HS Qty: 90 RF: 1 [place] 50-1,000 mg tablet 1 tab PO BID Qty: 180 RF: 1 metoprolol succinate 50 mg tablet extended release 24 hr 50 mg PO QAM Qty: 90 RF: 0 acetaminophen 500 mg tablet 1,000 mg PO TID PRN (Reason: Fever Or Pain) Qty: 90 RF: 0 fluticasone propionate 50 mcg/actuation spray,suspension 1 sprays intranasal DAILY PRN (Reason: Allergy Symptoms) Qty: 3 RF: 0 amoxicillin 500 mg capsule See Rx Instructions .ROUTE .COMPLEX RF: 0 (DME) OneTouch Ultra Blue Test Strip strip See Dose Instructions .ROUTE .MEDSUPPLY Qty: 10 RF: 0 (DME) lancets [[facility] UltraSoft Lancets] [facility] See Dose Instructions .ROUTE .MEDSUPPLY Qty: 50 RF: 0 aspirin 81 mg Tablet,Delayed Release (Dr/Ec) 81 mg PO QPM RF: 0 levothyroxine 100 mcg tablet 100 mcg PO QAM RF: 0 lisinopril 10 mg tablet 10 mg PO QPM RF: 0 Discharge Orders: Discharge Order (Routine); Ordered 03/06/19 Ordered By: Obie Hussein Admission Data Admit Date/Time: 03/01/19 20:34 Attending Provider: Obie Hussein Admit Provider: Chavo Douglas Primary Care Provider: Judith Rodriguez Other Providers: Beltran Wolff ; Chavo Douglas ; Padmaja Caraballo ; Kvng Calabrese V ; Sameera Flores ; Jan Ovalle ; Alvarez Zamudio ; Mehul Hussein I. ; Patric Quach ; Francine Del Rosario ; Raúl Rosado ; Isabella Bingham I ; Gi Mistry ; Ravi Carrera ; Adriana Hurt ; Benito Amaral Other Interventions: Discharge Summary Assessment (RN) Last Done: 03/06/19 10:38 DC Date/Time DO NOT enter until pt leaves facility: 03/06/19 12:21
[2019-03-06 17:25] LABS: Albumin 2.6 g/dL (3.8-4.8); Alpha 1 Globulin 0.4 g/dL (0.2-0.3); Alpha 2 Globulin 0.8 g/dL (0.5-0.9); Beta-1-Globulin 0.3 g/dL (0.4-0.6); Beta-2-Globulin 0.3 g/dL (0.2-0.5); Monoclonal Protein Band 1 0.2 g/dL (NONE DETECTED); Monoclonal Protein Band 2 DNR g/dL (NONE DETECTED); Monoclonal Protein Band 3 DNR g/dL (NONE DETECTED); PTH Related Protein 14 pg/mL (14-27); Total Protein 5.5 g/dL (6.1-8.1); Vitamin D 1,25 79 pg/mL (18-72); Vitamin D3,1,25 67 pg/mL
[2019-03-07 06:10] LABS: Albumin 2.4 g/dL (3.8-4.8); Alpha 1 Globulin 0.4 g/dL (0.2-0.3); Alpha 2 Globulin 0.9 g/dL (0.5-0.9); Beta-1-Globulin 0.3 g/dL (0.4-0.6); Beta-2-Globulin 0.3 g/dL (0.2-0.5); Gamma Globulin 0.9 g/dL (0.8-1.7); Monoclonal Protein Band 1 0.2 g/dL (NONE DETECTED); Monoclonal Protein Band 2 DNR g/dL (NONE DETECTED); Monoclonal Protein Band 3 DNR g/dL (NONE DETECTED); Total Protein 5.2 g/dL (6.1-8.1)
[2019-03-07 08:41] LABS: Creatinine Ur 44 mg/dL (20-320); Protein, Urine Random 21 mg/dL (5-25); Urine Abnormal Protein Band 1 DNR mg/dL (NONE DETECTED); Urine Abnormal Protein Band 2 DNR mg/dL (NONE DETECTED); Urine Abnormal Protein Band 3 DNR mg/dL (NONE DETECTED); Urine Protein/Creatinine Ratio 0.477 (0.022-0.128)
[2019-03-07 17:01] LABS: Creatinine, Random Urine 58 mg/dL (20-320); Total Metanephrine 465 mcg/g cr (149-603)
== END 2019-03-06 12:21 | disposition home or self-care (01) | DRG 683 ==
LOC: ED 16:06 → SUATTDRO 20:34 → 2N 20:34

== ENCOUNTER 2019-05-13 16:28 | Observation (INO) ==
[2019-05-13] MEDS ORDERED: ACETAMINOPHEN 325 MG TAB PO PRN (17:53)
[2019-05-13] MEDS ORDERED: DIPHENOXYLATE/ATROPINE 2.5/0.025MG TAB PO PRN (17:58)
--- NOTE | 2019-05-13 18:37 | History & Physical Report ---
Date of Service May 13, 2019 Assessment & Plan (1) SHAVONNE (acute kidney injury): Baseline Cr. ~2. CKD, stage 3 with eGFR ~30. Presently with presumed pre- renal SHAVONNE due to diarrhea, though certainly recurrent obstruction from his lymphoma is possible. - Getting IV fluids at present - KUB and kidney/bladder u/s to investigate bilateral stents. If any concern, consult nephrology. - UA and urine lytes - Nephrology consult (2) Hodgkin's lymphoma: Follows with Dr. Wolff. On A-ADV therapy (brentuximab-doxorubicin, vinblastine, and dacarbazine). Did well with first treatment, but has had worse diarrhea with the second treatment. - Oncology aware - No inpatient needs at present (3) Diabetes: A1cs have all hovered around 7%, with last one in 02/2019. - Hold oral med at present. - Sliding scale insulin (4) CAD (coronary artery disease): S/p 1 WALKER in 2009. No chest pain, no indication of acute ischemia. - Continue ASA, beta-evonne, statin - Holding ACEi for kidney injury (5) Hypertension: BP presently 105/77. Likely a bit low from dehydration. - Continue beta-evonne - Hold ACEi for kidney injury (6) Hypothyroidism: All prior TSHs in normal range; however, given diarrhea, will check one with AM labs. - Continue levothyroxine 100 mcg daily (7) Severe sleep apnea: Will offer hospital CPAP (8) DVT prophylaxis: Heparin 5000 units SQ Q12h History of Present Illness Primary Care Provider: Judith Rodriguez, DO 79yo M w/ hx of Hodgkin's lymphoma, HTN, DM, and CKD (from obstruction due to his lymphoma) who presents with SHAVONNE on CKD. He reports that he has had two treatments for his lymphoma so far. His last one was on 05/02/2019. He reports he had diarrhea staring the Thursday after the treatment, and it has continued. Over the last 5 days, his diarrhea has continued unabated and been severe this week, and he feels he has gotten dehydrated from it potentially. He reports he has not had any trouble with urination. He denies any nausea or vomiting, no fevers/chills, no chest pain, no shortness of breath. Allergies Allergy/AdvReac Type Severity Reaction Status Date / Time calcium carbonate [From Tums] AdvReac Unknown TOLD NOT Verified 04/15/19 09:48 TO TAKE DUE TO HIGH BLOOD CALCIUM LEVEL Home Medications Home Medications Medication Instructions Recorded Confirmed Type acetaminophen 500 mg tablet 500 - 1,000 mg PO TID PRN #90 tab 11/29/18 05/13/19 History blood sugar diagnostic #10 ea 11/29/18 03/29/19 History lancets #50 ea 11/29/18 03/29/19 History sitagliptin 50 mg-metformin 1,000 1 tab PO BID #180 tab 02/04/19 04/04/19 Rx mg tablet aspirin 81 mg PO QPM 03/01/19 05/13/19 History levothyroxine 100 mcg PO QAM 03/01/19 05/13/19 History atorvastatin 80 mg tablet 80 mg PO HS #90 tab 04/11/19 05/13/19 Rx lisinopril 10 mg tablet 10 mg PO QPM #90 tab 04/11/19 Rx metoprolol succinate 50 mg 50 mg PO QAM #90 tab 05/12/19 Rx tablet,extended release 24 hr Past Med/Surg History Medical History Arteriosclerotic coronary artery disease Chronic osteoarthritis Dyslipidemia Gastroesophageal reflux disease High serum calcium Hodgkin's lymphoma Hypertension Hypothyroidism Renal failure DX FEB 2019 - STENTS PLACED Severe sleep apnea CPAP T2DM (type 2 diabetes mellitus) Surgical History History of colonoscopy History of total knee arthroplasty R knee. Port-A-Cath in place (04/04/19) Port placement. Dr. Gruber 04/04/19 S/P coronary artery stent placement (02/2009) WALKER to RCA Feb 2009. Family History Father , age 70 Stroke Myocardial infarction Coronary heart disease Hypertension Heart disease Mother Hypertension Denies family history of Ovarian cancer Prostate cancer Breast cancer Colorectal cancer Social History Preferred Language: Qatari Communication Ability: Effective Visual Impairment: No Limitations Hearing Ability: Use of Hearing Aid Liquor Store Manager Required: No Beliefs That Will Affect Care: Holiness Holiness Beliefs: Shinto marital status: Current Living Situation: Spouse current occupational status: retired Feels Safe at Home: Yes Safety Concerns: Feels Safe At This Time Smoking Status: Never smoker Second Hand Exposure: No ; Hx Alcohol Use: No Hx Substance Use: No caffeine: Yes Dental Care, Regularly: Yes Physical Activity Frequency: 3-4 Times per Week Seatbelt Use: always Sunscreen Use: Yes Review of Systems Review of Systems: All systems reviewed & are unremarkable except as noted in HPI & below Physical Exam Constitutional: WD/WN, vitals as above Eyes: EOM intact bilaterally; no conjunctival abnormality ENMT: external ear and nose normal, oropharynx normal Neck: trachea midline, no thyromegaly normal visual inspection Respiratory: normal respiratory effort, lungs clear to auscultation no respiratory distress Cardiovascular: RRR, no murmur, no edema Chest (Breasts): Chest: + vascular access device or port (Left side) Gastrointestinal (Abdomen): Inspection/Auscultation: abdomen normal to inspection; abdomen not distended Musculoskeletal: no cyanosis or clubbing, extremities motor strength 5/5 Skin: no rashes, warm and dry Neurologic: moves all extremities and awake Psychiatric: Orientation: alert, oriented to person and cooperative Results & Data Vital Signs (Past 12 Hours) Vital Signs Temp Pulse Resp BP Pulse Ox 05/13/19 17:48 36.5 C 87 18 104/77 100 Code Status & VTE Plan VTE Prophylaxis Plan VTE Prophylaxis will be ordered: Yes PG Care Time/CCT Total # of Minutes Spent Total Time Spent with Patient: Total time spent is greater than 50% in coordination of care (as documented) at patient's floor/unit and/or counseling patient: Coding Level of Care Code 74721 Initial Inpt Care Lvl 3 Diagnoses SHAVONNE (acute kidney injury) N17.9 Hodgkin's lymphoma C81.90 Diabetes E11.9 CAD (coronary artery disease) I25.10 Hypertension I10 Hypertension type: essential hypertension Hypothyroidism E03.9 Hypothyroidism type: acquired Severe sleep apnea G47.30 DVT prophylaxis Z29.9 (1) Hypertension Hypertension type: essential hypertension Qualified Code(s): I10 - Essential (primary) hypertension (2) Hypothyroidism Hypothyroidism type: acquired Qualified Code(s): E03.9 - Hypothyroidism, unspecified
[2019-05-13] MEDS: LACTATED RINGER'S 1,000 ML IV SCH (18:38)
--- NOTE | 2019-05-13 19:02 | XRay Report ---
KUB HISTORY: Status post placement of ureteral stents Ureteral stent placement COMPARISON: PET CT 03/23/2019 FINDINGS: Bilateral ureteral stents appear to be in satisfactory positioning. No definite calculi see n along the course of the ureters. No shadows are obscured by bowel gas. There is gaseous distention of the large bowel with mild gaseous distention of the small bowel. Bowel gas pattern is nonobstructi ve. No pneumatosis or pneumoperitoneum. Degenerative changes of the spine, pelvis and hips. IMPRESSION: 1. Satisfactory positioning of the ureteral stents. No definite ureteral calculi. 2. Gas-filled loops of large and small bowel suggest ileus. ACT 112: Negative or not required by law. The above report was generated using voice recognition software. It may contain grammatical, syntax o r spelling errors. Electronically signed by: Nam Meyer M.D. 05/13/2019 7:00 PM
[2019-05-13] MEDS: HEPARIN SOD 5,000 UNIT/0.5 ML VIAL SQ SCH (19:57)
--- NOTE | 2019-05-13 20:47 | Ultrasound Report ---
US renal/blad retro comp HISTORY: 79 years-old Male Acute kidney injury COMPARISON: CT abdomen and pelvis 03/02/2019, PET CT 03/23/2019 TECHNIQUE: Multiple real-time sonographic images of the kidneys and urinary bladder were obtained ass essing grayscale appearance and color flow FINDINGS: Right kidney measures 12.7 x 5.9 x 6.8 cm and demonstrates mild to moderate hydronephrosis. The proxi mal portion of the stent is noted within the renal pelvis. No right-sided renal calculi or suspicious mass lesions. Mild layering debris within the urinary bladder lumen. Mild urinary bladder wall thickening with trab eculation. Distal portion of the bilateral ureteral stents are noted. No ureteral jets identified. Moderate left-sided hydronephrosis with proximal portion of the stent noted within the renal pelvis. Left kidney measures 11.9 x 6.3 x 6.3 cm. No left-sided renal calculi or suspicious mass lesions. IMPRESSION: 1. Bilateral hydronephrosis, left greater than right with bilateral ureteral stents. 2. Mild urinary bladder wall thickening and trabeculation redemonstrated suggestive of chronic bladde r outlet obstruction. 3. Mild dependent debris within the urinary bladder. Correlate with urinalysis. ACT 112: Negative or not required by law. The above report was generated using voice recognition software. It may contain grammatical, syntax o r spelling errors. Electronically signed by: Nam Meyer M.D. 05/13/2019 8:46 PM
[2019-05-13] MEDS ORDERED: ASPIRIN 81 MG ECTAB PO SCH (21:00)
[2019-05-13] MEDS ORDERED: ATORVASTATIN 40 MG TAB PO SCH (21:00)
[2019-05-13 22:20] LABS: Appearance Urine Turbid (Clear); Bacteria Urine Automated 2+ (Negative); Bilirubin Urine Negative (Negative); Blood Urine 3+ (Negative); Color Urine Orange; Glucose Urine UA Negative (Negative); Ketones Urine Negative (Negative); Leukocyte Esterase Urine 3+ (Negative); Nitrite Urine Negative (Negative); Protein Urine 3+ (Negative); Specific Gravity Urine 1.014 (1.000-1.030); Urobilinogen Urine Negative (Negative); WBC Urine Automated >30 /hpf (0-5); pH Urine 7.5 (4.5-7.5)
[2019-05-13 22:22] LABS: Sulfosalicylic Acid Urine Positive (Negative)
[2019-05-13 22:28] LABS: Urine Potassium 17.7 mmol/L
[2019-05-13 22:31] LABS: RBC Urine Automated >30 /hpf (0-4)
[2019-05-14] MEDS ORDERED: HEPARIN 100 UNIT/ML 5ML FLUSH FLUSH PRN (01:01)
[2019-05-14] MEDS: LACTATED RINGER'S 1,000 ML IV SCH ×2 (02:36→10:12)
[2019-05-14 05:39] LABS: Hemoglobin 7.3 g/dL (14.0-18.0); Mean Corpuscular Hgb Conc 33.2 g/dL (32-36); Mean Corpuscular Volume 81.5 fL (80-100); Mean Platelet Volume 8.6 fL (7.4-10.4); Platelet Count 302 K/uL (130-400); RDW Coefficient of Variation 16.2 % (11.5-14.5); RDW Standard Deviation 47.5 fL (36.4-46.3); White Blood Count 6.61 K/uL (4.8-10.8)
[2019-05-14 06:14] LABS: Albumin Level 1.8 gm/dl (3.4-5.0); BUN Creatinine Ratio 13.5 (10-20); Calcium 7.2 mg/dl (8.5-10.1); Creatinine Clr Calc Pharmacy 24.2 ml/min; Est GFR (African American) 28.4; Est GFR (Non-African American) 24.5; Magnesium 1.4 mg/dl (1.8-2.4); Potassium 3.2 mmol/L (3.5-5.1)
[2019-05-14 06:27] LABS: Albumin Globulin Ratio 0.5 (0.9-2); Bilirubin,Total 0.5 mg/dl (0.2-1); Globulin 3.4 gm/dl (2.5-4.0); Phosphorus 1.6 mg/dl (2.5-4.9); T4 Free Thyroxine 1.33 ng/dl (0.8-1.6); Thyroid Stimulating Hormone 4.89 uIu/ml (0.300-4.500); Total Protein 5.2 gm/dl (6.4-8.2)
[2019-05-14] MEDS ORDERED: LEVOTHYROXINE SODIUM 100 MCG TABLET PO SCH (06:30)
[2019-05-14 08:16] VITALS: BP 96/56; TEMP 98.6; O2SAT 98
[2019-05-14] MEDS: HEPARIN SOD 5,000 UNIT/0.5 ML VIAL SQ SCH (08:16)
[2019-05-14] MEDS ORDERED: POTASSIUM CHLORIDE 20 MEQ TABCR PO STA (08:38)
[2019-05-14] MEDS ORDERED: METOPROLOL SUCC 50MG EXT REL TAB PO SCH (09:00)
[2019-05-14] MEDS ORDERED: POTASSIUM PHOS 3 MMOL/1 ML INFUSION IV STA ×2 (09:49→10:01)
--- NOTE | 2019-05-14 09:50 | Nephrology Consultation ---
Date of Consultation May 14, 2019 Assessment & Plan (1) SHAVONNE (acute kidney injury): -- Clinically consistent with prerenal injury associated with diarrhea. -- Non-oliguric. -- Creatinine improving. -- Ureteral stents in appropriate position. No fevers or chills or urinary symptoms. Low suspicion for UTI. -- Diarrhea improving. -- Electrolyte replacement ordered for hypokalemia, hypomagnesemia, hypophosphatemia this AM: 2 gm IV MgSO4 IV, 9 mmol KPhos IV, KCl 40 mEq PO. -- Will also start Phos NaK 2 tabs TID. -- Continue LR at 125 ml/hr now. -- Repeat metabolic profile this afternoon. -- If metabolic profile demonstrates improved electrolyte abnormalities and kidney function, I suspect discharge with outpatient follow up labs in the oncology clinic on Thursday would be acceptable. -- Continue oral K Phos replacement post discharge pending follow up labs. -- Continue to hold TAVON and metformin for now. -- Urology follow up as scheduled. (2) Hodgkin's lymphoma: -- Follows with Dr. Wolff. On A-ADV therapy (brentuximab-doxorubicin, vinblastine, and dacarbazine). Outpatient follow up scheduled on Thursday. (3) Diabetes: -- Hold metformin. (4) CAD (coronary artery disease): -- Continue to hold TAVON for now. (5) Hypertension: -- BP remains low, continue to hold lisinopril. History of Present Illness Reason for Consultation: SHAVONNE Requesting Physician: Obie Hussein MD Attending Physician: Obie Hussein MD History of Present Illness Mr. Chavez Hankins is a 79-year-old male with Hodgkin's lymphoma, CAD, hypertension, DM II, and CKD. He was admitted to [facility] in February 2019 with acute kidney injury and hypercalcemia. Evaluation revealed widespread lymphadenopathy, notably in the retroperitoneum and mediastinum, and obstructive uropathy. The patient underwent BL ureteral stent placement and an axillary lymph node biopsy. He was diagnosed with classical Hodgkin lymphoma and started on treatment with B-AVD. Last week, he started to experience diarrhea as well as anorexia. Appetite has been slowly improving. Diarrhea is also starting to improve. He was admitted to [facility] from the oncology clinic yesterday with SHAVONNE. Renal US demonstrated some persistent bilateral hydroureteronephrosis. KUB demonstrate adequate positioning of stents. Chavez is non-oliguric. Creatinine is improving with supportive care including IVF. TAVON has been held. Chavez denies NSAID use. He feels reasonably well this AM. He denies any urinary symptoms. No fevers or chills. Urine microscopy notable for hematuria, pyuria, and granular casts. UA +proteinuria. Allergies Allergy/AdvReac Type Severity Reaction Status Date / Time calcium carbonate [From Tums] AdvReac Unknown TOLD NOT Verified 04/15/19 09:48 TO TAKE DUE TO HIGH BLOOD CALCIUM LEVEL Home Medications Home Medications Medication Instructions Recorded Confirmed Type acetaminophen 500 mg tablet 500 - 1,000 mg PO TID PRN #90 tab 11/29/18 05/13/19 History blood sugar diagnostic #10 ea 11/29/18 03/29/19 History lancets #50 ea 11/29/18 03/29/19 History sitagliptin 50 mg-metformin 1,000 1 tab PO BID #180 tab 02/04/19 04/04/19 Rx mg tablet aspirin 81 mg PO QPM 03/01/19 05/13/19 History levothyroxine 100 mcg PO QAM 03/01/19 05/13/19 History atorvastatin 80 mg tablet 80 mg PO HS #90 tab 04/11/19 05/13/19 Rx lisinopril 10 mg tablet 10 mg PO QPM #90 tab 04/11/19 Rx metoprolol succinate 50 mg 50 mg PO QAM #90 tab 05/12/19 Rx tablet,extended release 24 hr Patient History Medical History Arteriosclerotic coronary artery disease Chronic osteoarthritis Dyslipidemia Gastroesophageal reflux disease High serum calcium Hodgkin's lymphoma Hypertension Hypothyroidism Renal failure DX FEB 2019 - STENTS PLACED Severe sleep apnea CPAP T2DM (type 2 diabetes mellitus) Surgical History History of colonoscopy History of total knee arthroplasty R knee. Port-A-Cath in place (04/04/19) Port placement. Dr. Gruber 04/04/19 S/P coronary artery stent placement (02/2009) WALKER to RCA Feb 2009. Family History Father , age 70 Stroke Myocardial infarction Coronary heart disease Hypertension Heart disease Mother Hypertension Denies family history of Ovarian cancer Prostate cancer Breast cancer Colorectal cancer Social History Preferred Language: [place] Communication Ability: Effective Visual Impairment: No Limitations Hearing Ability: Use of Hearing Aid Synthetic Resin Operator Required: No Beliefs That Will Affect Care: Druze Druze Beliefs: Spiritism marital status: Current Living Situation: Spouse current occupational status: retired Feels Safe at Home: Yes Safety Concerns: Feels Safe At This Time Smoking Status: Never smoker Second Hand Exposure: No ; Hx Alcohol Use: No Hx Substance Use: No caffeine: Yes Dental Care, Regularly: Yes Physical Activity Frequency: 3-4 Times per Week Seatbelt Use: always Sunscreen Use: Yes Review of Systems Constitutional: no weight loss, no weight gain and no problem reported Eyes: no problem reported Ear, Nose, Mouth, Throat: no problem reported Respiratory: no problem reported Cardiovascular: no problem reported Gastrointestinal: no problem reported Musculoskeletal: no problem reported Integumentary: no problem reported Neurologic: no problem reported Psychiatric: no problem reported Endocrine: no problem reported Hematologic / Lymphatic: no problem reported Physical Exam Constitutional: well developed; no acute distress Eyes: no scleral abnormality and no corneal abnormality ENMT: Mouth: no oral mucosal abnormality and oral mucous membranes not dry Neck: normal visual inspection and trachea midline Respiratory: normal respiratory effort Auscultation: lungs clear to auscultation bilaterally Cardiovascular: Rate/Rhythm: regular rate Heart Sounds: normal S1 and normal S2 Extremities: no edema Musculoskeletal: Extremities: no cyanosis and no clubbing Skin: normal turgor; no lesions Neurologic: Motor/Sensory: no tremor and no asterixis Psychiatric: Orientation: alert and oriented x 3 Results & Data Vital Signs (Past 12 Hours) Vital Signs Temp Pulse Resp BP Pulse Ox 05/14/19 08:15 37.0 C 94 H 18 96/56 L 98 05/14/19 04:30 36.6 C 104 H 22 114/68 100 05/13/19 23:19 36.7 C 88 18 95/55 L 97 Laboratory Results Laboratory Results - last 24 hr 05/13/19 05/13/19 05/13/19 17:45 20:31 20:55 WBC RBC Hgb Hct MCV MCH MCHC RDW Std Deviation RDW Coeff of Enrike Plt Count MPV Sodium Potassium Chloride Carbon Dioxide Anion Gap BUN Creatinine Est Cr Clr Drug Dosing Est GFR ( Amer) Est GFR (Non-Af Amer) BUN/Creatinine Ratio Glucose POC Glucose 115 H 103 H Calcium Phosphorus Magnesium Total Bilirubin AST ALT Alkaline Phosphatase Total Protein Albumin Globulin Albumin/Globulin Ratio TSH Free T4 Urine Color [place] Urine Appearance Turbid A Urine pH 7.5 Ur Specific [place] 1.014 Urine Protein 3+ H Urine Glucose (UA) Negative Urine Ketones Negative Urine Blood 3+ H Urine Nitrite Negative Urine Bilirubin Negative Urine Urobilinogen Negative Ur Leukocyte Esterase 3+ H Urine WBC (Auto) >30 H Urine RBC (Auto) >30 H U Hyaline Cast (Auto) 5-10 H U Epithel Cells (Auto) 10-20 H Urine Bacteria (Auto) 2+ H Granular Casts 1-5 H Urine Yeast Present A Urine Sodium Urine Potassium Urine Chloride Stl C. diff Tox B Gene 05/13/19 05/14/19 05/14/19 20:55 04:35 05:09 WBC 6.61 RBC 2.70 L Hgb 7.3 L Hct 22.0 L MCV 81.5 MCH 27.0 MCHC 33.2 RDW Std Deviation 47.5 H RDW Coeff of Enrike 16.2 H Plt Count 302 MPV 8.6 Sodium Potassium Chloride Carbon Dioxide Anion Gap BUN Creatinine Est Cr Clr Drug Dosing Est GFR ( Amer) Est GFR (Non-Af Amer) BUN/Creatinine Ratio Glucose POC Glucose Calcium Phosphorus Magnesium Total Bilirubin AST ALT Alkaline Phosphatase Total Protein Albumin Globulin Albumin/Globulin Ratio TSH Free T4 Urine Color Urine Appearance Urine pH Ur Specific [place] Urine Protein Urine Glucose (UA) Urine Ketones Urine Blood Urine Nitrite Urine Bilirubin Urine Urobilinogen Ur Leukocyte Esterase Urine WBC (Auto) Urine RBC (Auto) U Hyaline Cast (Auto) U Epithel Cells (Auto) Urine Bacteria (Auto) Granular Casts Urine Yeast Urine Sodium 50 Urine Potassium 17.7 Urine Chloride 50 Stl C. diff Tox B Gene Negative Cdiff Gene 05/14/19 05:09 WBC RBC Hgb Hct MCV MCH MCHC RDW Std Deviation RDW Coeff of Enrike Plt Count MPV Sodium 135 L Potassium 3.2 L Chloride 105 Carbon Dioxide 20 L Anion Gap 10.0 BUN 33 H Creatinine 2.43 H D Est Cr Clr Drug Dosing 24.2 Est GFR ( Amer) 28.4 Est GFR (Non-Af Amer) 24.5 BUN/Creatinine Ratio 13.5 Glucose 98 POC Glucose Calcium 7.2 L Phosphorus 1.6 L Magnesium 1.4 L Total Bilirubin 0.5 AST 34 ALT 42 Alkaline Phosphatase 244 H Total Protein 5.2 L Albumin 1.8 L Globulin 3.4 Albumin/Globulin Ratio 0.5 L TSH 4.890 H Free T4 1.33 Urine Color Urine Appearance Urine pH Ur Specific [place] Urine Protein Urine Glucose (UA) Urine Ketones Urine Blood Urine Nitrite Urine Bilirubin Urine Urobilinogen Ur Leukocyte Esterase Urine WBC (Auto) Urine RBC (Auto) U Hyaline Cast (Auto) U Epithel Cells (Auto) Urine Bacteria (Auto) Granular Casts Urine Yeast Urine Sodium Urine Potassium Urine Chloride Stl C. diff Tox B Gene PG Care Time/CCT Total # of Minutes Spent Total Time Spent with Patient: Total time spent is greater than 50% in coordination of care (as documented) at patient's floor/unit and/or counseling patient: Coding Level of Care Code 60338 Inpt Consult Level 4 Diagnoses SHAVONNE (acute kidney injury) N17.9 Hodgkin's lymphoma C81.90 Diabetes E11.9 CAD (coronary artery disease) I25.10 Hypertension I10 Hypertension type: essential hypertension (1) Hypertension Hypertension type: essential hypertension Qualified Code(s): I10 - Essential (primary) hypertension
[2019-05-14] MEDS ORDERED: POTASSIUM PHOSPHATE 9 MMOL in SODIUM CHLORIDE 0.9% 250 ML IV ONE (10:15)
[2019-05-14] MEDS ORDERED: SODIUM CHLORIDE 0.9% 1000ML 1,000 ML IV SCH (10:15)
[2019-05-14] MEDS: POT PHOSPHATE MONOBASIC W/ SOD TAB PO SCH ×2 (10:32→14:25)
[2019-05-14] MEDS: MAGNESIUM SULFATE / D5W 1 GM/100 ML BAG IV SCH ×2 (10:32→11:34)
[2019-05-14] MEDS ORDERED: POTASSIUM PHOSPHATE 15 MMOL in SODIUM CHLORIDE 0.9% 250 ML IV ONE (12:30)
--- NOTE | 2019-05-14 15:18 | Discharge Summary ---
Date of Service May 14, 2019 Admission HPI Per Admitting Provider 79yo M w/ hx of Hodgkin's lymphoma, HTN, DM, and CKD (from obstruction due to his lymphoma) who presents with SHAVONNE on CKD. He reports that he has had two treatments for his lymphoma so far. His last one was on 05/02/2019. He reports he had diarrhea staring the Thursday after the treatment, and it has continued. Over the last 5 days, his diarrhea has continued unabated and been severe this week, and he feels he has gotten dehydrated from it potentially. He reports he has not had any trouble with urination. He denies any nausea or vomiting, no fevers/chills, no chest pain, no shortness of breath. Principal Diagnosis Acute kidney injury due to dehydration Discharge Exam Constitutional WD/WN, vitals as above Eyes EOM intact bilaterally; no conjunctival abnormality ENMT external ear and nose normal, oropharynx normal Neck trachea midline, no thyromegaly normal visual inspection Respiratory normal respiratory effort, lungs clear to auscultation no respiratory distress Cardiovascular RRR, no murmur, no edema Chest (Breasts) Chest: + vascular access device or port (Left side) Gastrointestinal (Abdomen) Inspection/Auscultation: abdomen normal to inspection; abdomen not distended Musculoskeletal no cyanosis or clubbing, extremities motor strength 5/5 Skin no rashes, warm and dry Neurologic moves all extremities and awake Psychiatric Orientation: alert, oriented to person and cooperative Discharge Data Allergies Allergy/AdvReac Type Severity Reaction Status Date / Time calcium carbonate [From Tums] AdvReac Unknown TOLD NOT Verified 04/15/19 09:48 TO TAKE DUE TO HIGH BLOOD CALCIUM LEVEL Consultations 05/13/19 17:53 Consult Nephrology Routine Ordered Studies 05/13/19 17:53 US renal/blad retro comp Urgent Hospital Course (1) SHAVONNE (acute kidney injury): Baseline Cr. ~2. CKD, stage 3 with eGFR ~30. Presently with presumed pre- renal SHAVONNE due to diarrhea, though certainly recurrent obstruction from his lymphoma is possible. - Kidney/bladder u/s on 05/12 indicated good placement of stents. Discussed with urology who feel his imaging with mild/moderate hydronephrosis is expected given the stents are not as widely patent as normal ureters. He should follow up as planned with Dr. Mehul Hussein this week. Stents should be replaced after 3 months (ie ~06/02/2019), but can last as long as 6 months. Urine testing was very dirty, and he has no other indication of UTI, so hold abx at this time. - Nephrology consulted -> Feel it is due to dehydration. Afternoon BMP and lytes were improved. He was discharged with phone follow up on Thursday with Dr. Wolff. (2) Hodgkin's lymphoma: Follows with Dr. Wolff. On A-ADV therapy (brentuximab-doxorubicin, vinblastine, and dacarbazine). Did well with first treatment, but has had worse diarrhea with the second treatment. - Oncology aware - No inpatient needs at present - C. diff was negative. Continued home Lomotil which seemed to help his diarrhea. Dr. Wolff may delay next treatment by 1 week to recover more. (3) Diabetes: A1cs have all hovered around 7%, with last one in 02/2019. - Stop Janument on discharge. His eGFR is not consistently high enough for safe use. - Monitor home blood sugars and adjust with PCP as needed. (4) CAD (coronary artery disease): S/p 1 WALKER in 2009. No chest pain, no indication of acute ischemia. - Continued ASA, beta-evonne, statin - Hold ACEi on discharge for unstable Cr and SHAVONNE (5) Hypertension: BP presently 105/77. Likely a bit low from dehydration. Still low-normal on discharge. - Continue beta-evonne - Hold ACEi for kidney injury (6) Hypothyroidism: TSH was high-normal with a normal FT4 this admission. - Continued levothyroxine 100 mcg daily (7) Severe sleep apnea: Offered hospital CPAP. (8) DVT prophylaxis: Heparin 5000 units SQ Q12h Total Time Total Time Spent Total Time Spent (In Minutes): 35 Discharge Plan Discharge Items Patient Disposition: Home - Self-Care Reason For Visit: ACUTE KIDNEY INJURY Discharge Diagnosis: Acute kidney injury Activity: Resume your previous activity Non-emergency contact: Primary Care Provider and Oncologist Call non-emergency contact if: your symptoms worsen and your rectal temperature is above 100.4 Follow-up/Referrals: Mehul Hussein MD [Physician] - (Please see Dr. Hussein next week for follow up of your stents.) Ricotta,Judith M., DO [Primary Care Provider] - Beltran Wolff [Physician] - (Please speak with Dr. Wolff on Thursday and see if he wants you to get any labs.) Diet: Carb Consistent or DM2, Dialysis Renal and Heart Healthy Addtl Attending Provider Instructions: Mr. Hankins, You were admitted to the hospital with slightly worsened kidney function and electrolytes out of whack. This was due to the diarrhea you had from your chemotherapy. Luckily, you do not have any sign of infection with the diarrhea (for example, C. diff), but certainly the diarrhea has caused you to get dehydrated and caused a kidney injury. Fortunately, your kidneys returned to normal with IV fluids. We were able to correct your electrolytes with some IV replacements. We will send you out with some oral supplements to help keep your potassium and phosphate levels up. We stopped both your Janumet and your lisinopril. For both of these medications, your kidney levels make them unsafe as they might build up in your body. Please monitor your blood pressure at home with a home cuff. If your blood pressure gets too high, you may need to start a safer medication for you. However, in the hospital, your blood pressure has actually run on the low side of normal, so I will not start a new medication. For your diabetes, you can watch your blood sugars. There are a few safer options for diabetes and kidney problems, but it is possible that you won't need any right away. Your A1c indicates that your sugars are largely pretty well controlled, so you may not need a medication. Please speak with Dr. Wolff on Thursday. He may have you get some labs to be sure your kidneys are returning to normal and electrolytes are in a good range. He may have you hold your treatment for one week to give you more time to recover, but this is something to discuss with him. If your diarrhea comes back, gets worse, or doesn't go away with the Lomotil, please call your PCP and/or Dr. Wolff. Pending Studies at Discharge: No Stand-Alone Forms: My [facility] [employer], Smoking Cessation Medications and DC Order Prescriptions: New Phospha 250 Neutral 250 mg Tablet 1 tab PO TID Qty: 21 RF: 0 Continued atorvastatin 80 mg tablet 80 mg PO HS Qty: 90 RF: 1 metoprolol succinate 50 mg tablet extended release 24 hr 50 mg PO QAM Qty: 90 RF: 1 acetaminophen 500 mg tablet 500 - 1,000 mg PO TID PRN (Reason: Fever Or Pain) Qty: 90 RF: 0 (DME) OneTouch Ultra Blue Test Strip strip See Dose Instructions .ROUTE .MEDSUPPLY Qty: 10 RF: 0 (DME) lancets [OneTouch UltraSoft Lancets] [facility] See Dose Instructions .ROUTE .MEDSUPPLY Qty: 50 RF: 0 aspirin 81 mg Tablet,Delayed Release (Dr/Ec) 81 mg PO QPM RF: 0 levothyroxine 100 mcg tablet 100 mcg PO QAM RF: 0 Discontinued Janumet 50-1,000 mg tablet 1 tab PO BID Qty: 180 RF: 1 lisinopril 10 mg tablet 10 mg PO QPM Qty: 90 RF: 1 Discharge Orders: Discharge Order (Routine); Ordered 05/14/19 Ordered By: Obie Hussein Admission Data Admit Date/Time: 05/13/19 17:55 Attending Provider: Obie Hussein Admit Provider: Obie Hussein Primary Care Provider: Judith Rodriguez Other Providers: Eamon Ogden Other Interventions: Discharge Summary Assessment (RN) Last Done: 05/14/19 17:05 Coding Level of Care Code D/C Day Management >30 mins Diagnoses SHAVONNE (acute kidney injury) N17.9 Hodgkin's lymphoma C81.90 Diabetes E11.9 CAD (coronary artery disease) I25.10 Hypertension I10 Hypertension type: essential hypertension Hypothyroidism E03.9 Hypothyroidism type: acquired Severe sleep apnea G47.30 DVT prophylaxis Z29.9
[2019-05-14 17:00] LABS: Albumin Level 1.8 gm/dl (3.4-5.0); Calcium 7.2 mg/dl (8.5-10.1); Creatinine Clr Calc Pharmacy 29.5 ml/min; Phosphorus 3.6 mg/dl (2.5-4.9); Potassium 3.7 mmol/L (3.5-5.1)
[2019-05-14 17:06] VITALS: PULSE 87
== END 2019-05-14 18:44 | disposition home or self-care (01) | DRG 683 ==
LOC: 4W 16:28 → INTOOBSV 17:55